=== PATIENT | female | born 1935 | race Caucasian/White ===

== ENCOUNTER 2022-09-01 19:51 | Emergency (ER) | payer MEDICARE, BC, SELFPAY ==
[2022-09-01] VITALS (7 sets, daily range): BP systolic 101–120; BP diastolic 46–98; PULSE 52–56; RESP 16; TEMP 36.1; O2SAT 92
--- NOTE | 2022-09-01 19:54 | CRLHL7_ITS ---
For Patients: As a result of the Century Cures Act, medical imaging exams and procedure reports are released immediately into your electronic medical record. You may view this report before your referring provider. If you have questions, please contact your health care provider. INDICATION: Fall, hematoma. TECHNIQUE: CT head without contrast. COMPARISON: March 07, 2017. FINDINGS: CSF spaces: Within normal limits for age. Brain parenchyma and extra-axial spaces: The allen-white differentiation is normal. No sign of mass, hemorrhage, or midline shift. No extra-axial fluid collection. Skull base and calvarium: Large frontal and parietal scalp hematoma. The visualized paranasal sinuses and mastoid air cells demonstrate no acute or significant findings. Bilateral lens replacement. The visualized orbits are grossly unremarkable. No skull fractures. IMPRESSION: Left frontal and parietal scalp hematomas. No acute intracranial abnormality or significant change when compared to prior study. Please note that all CT scans at this facility use dose modulation, iterative reconstruction, and/or weight-based dosing when appropriate to reduce radiation dose to as low as reasonably achievable. Dictated by Shayne Monge MD @ 09/01/2022 8:39:38 PM (Electronically Signed)
--- NOTE | 2022-09-01 20:23 | CRLHL7_ITS ---
For Patients: As a result of the Cures Act, medical imaging exams and procedure reports are released immediately into your electronic medical record. You may view this report before your referring provider. If you have questions, please contact your health care provider. INDICATION: Neck pain. TECHNIQUE: CT cervical spine without contrast. COMPARISON: 05/11/2021. FINDINGS: Vertebrae: Straightening of the normal cervical lordosis, which may be due to muscle spasm or positioning. There are no fractures or suspicious bony lesions. Discs and facet joints: There are diffuse degenerative changes in the disc spaces and facet joints. Extraspinal findings: Paraspinous soft tissues are unremarkable. IMPRESSION: 1. No sign of acute injury. 2. Multilevel degenerative spondylosis. Please note that all CT scans at this facility use dose modulation, iterative reconstruction, and/or weight-based dosing when appropriate to reduce radiation dose to as low as reasonably achievable. Dictated by Magno Lyons MD @ 09/01/2022 10:47:03 PM (Electronically Signed)
--- NOTE | 2022-09-01 20:29 | CRLHL7_ITS ---
For Patients: As a result of the Century Cures Act, medical imaging exams and procedure reports are released immediately into your electronic medical record. You may view this report before your referring provider. If you have questions, please contact your health care provider. INDICATION: Hypoxia. TECHNIQUE: CT chest without contrast. COMPARISON: None. FINDINGS: Lungs and pleura: Minimal dependent and mild bibasal atelectasis. No suspicious nodules or infiltrates. No pleural effusions, pleural thickening, or pneumothorax. Heart and vasculature: Heart size is normal. Thoracic aorta is normal in caliber. Enlarged main pulmonary artery measuring 3.5 cm. Aortic valve, mitral annular, coronary artery, and aortic calcifications. Lymph nodes/mediastinum: No mediastinal, hilar, or axillary adenopathy. Thyroid gland is unremarkable. Chest wall: No masses. Upper abdomen: Partially visualized postsurgical changes of the right colon. Bones: Degenerative changes of the spine and left shoulder. Right shoulder arthroplasty. IMPRESSION: 1. Minimal dependent and mild bibasilar atelectasis. Otherwise no acute airspace disease. 2. Enlarged main pulmonary artery, suggestive of underlying pulmonary hypertension. 3. Aortic valve, mitral annular, coronary artery, and aortic calcifications. Please note that all CT scans at this facility use dose modulation, iterative reconstruction, and/or weight-based dosing when appropriate to reduce radiation dose to as low as reasonably achievable. Dictated by Magno Lyons MD @ 09/01/2022 10:52:20 PM (Electronically Signed)
--- NOTE | 2022-09-01 20:31 | ED_ITS ---
HPI - Fall General Chief Complaint: Fall/Minor Trauma Stated Complaint: Fall, Head Laceration Time Seen by Provider: 09/01/22 20:07 History of Present Illness HPI Narrative: 87-year-old woman presenting to the emergency department via EMS after a fall in her kitchen. Lives independently with her in town home. She says she feels sorry for him as he has so much trouble remembering anything anymore. She normally gets about with a walker and was transitioning between 2 counters in her kitchen and a walker was about 2 ft away. She just fell down. Clearly struck the left forehead. She does have neck pain but notes that this is chronic that she has a pretty bad neck she says. A no loss of consciousness. She is not complaining of nausea. Would just like something to drink. As I begin moving her about though she also notes that she is sore around her waist bilaterally. Has had sounds like 3 falls in the last 2 weeks. On exam I note some injury to her back. She is not complaining of shortness of air. Low 90s on initial triage for oxygen saturation. Apparently does have sleep apnea but does not tend to use her BiPAP. History also of atrial fibrillation but is not anticoagulated beyond aspirin. She does also have home O2 up to 2 L as needed. Does chronically take opiates for looks like a number of pain issues. Related Data Home Medications Medication Instructions Recorded Confirmed Tylenol extra strength 500 mg PO 2XD 09/01/22 09/01/22 alendronate 70 mg tablet mg PO 09/01/22 allopurinol 300 mg tablet mg 09/01/22 calcium carbonate 500 mg calcium 500 mg PO BID 09/01/22 09/01/22 (1,250 mg) chewable tablet duloxetine 60 mg capsule,delayed mg PO 09/01/22 release ferrous sulfate 325 mg (65 mg 325 mg PO DAILY 09/01/22 09/01/22 iron) tablet (Feosol) hydromorphone 2 mg tablet mg 09/01/22 metoprolol tartrate 25 mg tablet mg 09/01/22 morphine 30 mg tablet,extended mg PO 09/01/22 release naloxone 4 mg/actuation nasal spray intranasal 09/01/22 omeprazole 20 mg capsule,delayed mg 09/01/22 release potassium chloride 10 mEq meq 09/01/22 capsule,extended release pregabalin 25 mg capsule mg 09/01/22 ropinirole 2 mg tablet mg 09/01/22 rosuvastatin 10 mg tablet mg 09/01/22 torsemide 20 mg tablet mg 09/01/22 Review of Systems Status of ROS: Reports: 6 or more systems reviewed and unremarkable except as noted in History and below [facility] Social History Non-prescribed substance use: denies use Exam Narrative: Exam Narrative: Pleasant. Hard of hearing. Quite alert. Other than hard of hearing and edentulous limiting communication is quite clear sensorium. Left eye often is a little closed though she clearly can open it. General ptosis believe this is chronic. Cranial nerves 2-12 otherwise look to be intact. Most notably she does have a half racquetball sized swelling at the left forehead over the taoist. It is oozing some blood. Blood generally in the area looks to be coagulating well. She has her neck flexed generally to her left. Sore to palpation in the left paracervical musculature not so much midline. Oropharynx is edentulous at this time with pegs in the lower jaw. Lungs are clear there is large patch of bruising would estimate around a week old on the left midback. Not terribly tender to palpation. No step-offs or crepitus noted here. Cardiovascular with lower rate looks to be regular. Abdomen is protuberant soft and without masses. Mildly tender generally across the low abdomen. No pain to palpation through the back until the bilateral upper gluteal area. There is 2.5 cm v-shaped laceration more like a skin tear in the volar mid left forearm. Both thumbs are stained with blood the looks like probably came from forehead. This some bruising over the posterior left upper arm. Both knees are full and with scars consistent with bilateral knee replacements. Left sock is on right sock is off hallux valgus bilaterally. Superficial varicosities. No indication of injury in the lower extremities. Const: Vital Signs, click to edit/add: Vital Signs - 24 hr 09/01/22 20:03 09/01/22 20:48 09/01/22 21:01 Temperature 97.0 F L Pulse Rate 56 L Pulse Rate [Right] 56 L Respiratory Rate 16 Blood Pressure 101/46 L Blood Pressure [Le ft Upper Arm] 120/62 Pulse Oximetry 92 92 Oxygen Delivery Me thod Room Air 09/01/22 21:04 09/01/22 21:15 09/01/22 21:30 Temperature Pulse Rate 52 L 52 L 52 L Pulse Rate [Right] Respiratory Rate Blood Pressure Blood Pressure [Le ft Upper Arm] Pulse Oximetry 92 92 92 Oxygen Delivery Me thod 09/01/22 21:33 Temperature Pulse Rate Pulse Rate [Right] Respiratory Rate Blood Pressure 115/98 H Blood Pressure [Le ft Upper Arm] Pulse Oximetry Oxygen Delivery Me thod Documenting provider has reviewed patient's vital signs: yes Course Vital Signs Vital signs: Initial Vital Signs Temperature 97.0 F L 09/01/22 20:03 Temperature Source Temporal Artery Scan 09/01/22 20:03 Pulse Rate 56 L 09/01/22 20:03 Pulse Rhythm 09/01/22 20:03 Respiratory Rate 16 09/01/22 20:03 Blood Pressure 120/62 09/01/22 20:03 Blood Pressure Mean 81 09/01/22 20:03 Blood Pressure Position Semi-Fowlers 09/01/22 20:03 Pulse Oximetry 92 09/01/22 20:03 Oxygen Delivery Method 09/01/22 20:03 Vital Signs Temperature 97.0 F L 09/01/22 20:03 Pulse Rate 56 L 09/01/22 20:03 Respiratory Rate 16 09/01/22 20:03 Blood Pressure 120/62 09/01/22 20:03 Pulse Oximetry 92 09/01/22 20:03 Oxygen Delivery Method 09/01/22 20:03 Temperature 97.0 F L 09/01/22 20:03 Pulse Rate 52 L 09/01/22 21:30 Respiratory Rate 16 09/01/22 20:03 Blood Pressure 115/98 H 09/01/22 21:33 Pulse Oximetry 92 09/01/22 21:30 Oxygen Delivery Method 09/01/22 20:03 MDM - Fall MDM Narrative Medical decision making narrative: I reviewed head CT which had already been ordered and completed by the time I am seeing this patient. Do not see acute abnormality other than extra calvarial with soft tissue swelling consistent with hematoma appreciated on exam at the left forehead. Visualized neck looks to be rather arthritic. Pending Radiology over-read. Will return for the neck CT and continue through chest given bruising and hypoxia. Reviewed images of CT of the neck and chest. No acute abnormalities appreciated. Radiology over-read concurs with extensive arthritic changes and evidence of pulmonary hypertension. Daughter arrived expressing concern regarding mother's mental status. I think this remained relatively stable but perceived then clearing of sensorium over time in the emergency department. Perhaps also improve somewhat with temporary placement of hearing aids. Bloody scalp cleaned and over the hematoma almost more skin tear lacerations given how thin the scalp has become here due to impact and with hematoma below. Does continue to ooze. Had tried temporary placement of a pressure dressing. Seems will have to suture. Lidocaine with epinephrine is injected into this area which she tolerates quite well. I then cleansed further with Shur-Clens. Suture to total area of 1 in and 3/4 with 6 0 Ethilon interrupted sutures. Still slightly oozing but improved I would say. Pressure dressing placed. Ambulated to and from the bathroom without notable difficulty. Medical Records Attestation: I reviewed the patient's medical records. Lab Data Attestation: I reviewed the patient's lab results. Labs: Lab Results 09/01/22 Range/Units 21:50 Urine Color Yellow (Yellow) Urine Appearance Cloudy A (Clear) Urine pH 6.0 (5.0-8.5) Ur Specific [place] 1.020 (1.000-1.030) Urine Protein Negative (Negative) Urine Glucose (UA) Negative (Negative) Urine Ketones Negative (Negative) Urine Blood Trace-intact A (Negative) Urine Nitrite Negative (Negative) Urine Bilirubin Negative (Negative) Urine Urobilinogen 0.2 (0.2-1.0) Ur Leukocyte Esterase 1+ A (Negative) Urine RBC 0-2 (0-2) Urine WBC 0-2 (0-5) Ur Squamous Epith Cells Few (None-Few) Urine Bacteria Moderate A (None) Discharge Plan Discharge Clinical Impression: Hematoma, Closed head injury, Skin tear, Abrasion, Laceration of scalp Patient Disposition: Home w/ Parent or Adult Condition: Improved Additional Instructions: Change dressing daily for 4 days over left scalp applying antibiotic ointment and nonstick dressing. Then to dry dressing. Sutures out in 8 days or so. Okay to get wet while sutures are in but avoid soaking. If bleed through current dressing, replace. If bleed through the replacement r eturn to the emergency department. Leave current dressing on until late afternoon tomorrow or even morning of the . It is possible might have to apply some water to soak bandage to help remove initial dressing change. Signs or symptoms of a concussion might be nausea or headache upon exertion which can also be an indication to back off that level of activity and reassess in a week.? Concussion can also be represented by smoldering nausea or smoldering headache, difficulty with concentration, mood lability general somnolence, sense of persistent fog or dizziness/lightheadedness.? If these symptoms are becoming apparent and continuing beyond 7-10 days, be re-evaluated for further recommendations. Prescriptions: No Action potassium chloride 10 mEq capsule, extended release Label Comments: TAKE 2 CAPSULES BY MOUTH ONCE DAILY WITH A MEAL. torsemide 20 mg tablet Label Comments: TAKE 2 TABLETS BY MOUTH TWICE A DAY alendronate 70 mg tablet PO morphine 30 mg tablet extended release PO Label Comments: TAKE 1 TABLET (30 MG) BY MOUTH TWO TIMES DAILY. hydromorphone 2 mg tablet Label Comments: TAKE 1-2 TABS TWICE DAILY NEEDED FOR PAIN. MAX 2 DAILY. ropinirole 2 mg tablet Label Comments: TAKE 1 TABLET (2 MG) BY MOUTH IN THE MORNING AND 1 TABLET (2 MG) IN THE EVENING. omeprazole 20 mg capsule,delayed release(DR/EC) Label Comments: TAKE 1 CAPSULE BY MOUTH IN THE MORNING AND 1 CAPSULE IN THE EVENING. TAKE BEFORE MEALS. allopurinol 300 mg tablet Label Comments: TAKE 1 TABLET BY MOUTH ONCE DAILY. rosuvastatin 10 mg tablet Label Comments: TAKE 1 TABLET BY MOUTH EVERYDAY AT BEDTIME metoprolol tartrate 25 mg tablet Label Comments: TAKE 1 TABLET BY MOUTH IN THE MORNING AND 1 TABLET IN THE EVENING. duloxetine 60 mg capsule,delayed release(DR/EC) PO Label Comments: TAKE 1 CAPSULE BY MOUTH ONCE DAILY. pregabalin 25 mg capsule Label Comments: TAKE 1 CAPSULE (25 MG) BY MOUTH TWO TIMES DAILY. naloxone 4 mg/actuation spray,non-aerosol INTRANASAL Label Comments: INHALE 1 SPRAY INTO NOSTRIL NEEDED FOR ACCIDENTAL OVERDOSE. ADDITIONAL DOSES MAY BE GIVEN EVERY 2-3 MINUTES ALTERNATING NOTRILS. Tylenol extra strength 500 mg PO 2XD ferrous sulfate [Feosol] 325 mg (65 mg iron) tablet 325 mg PO DAILY calcium carbonate 500 mg calcium (1,250 mg) tablet,chewable 500 mg PO BID Follow Up/Referrals: Bucky Nicholas MD [Primary Care Provider] - Stand Alone Forms: [facility] Info Instructions
[2022-09-01 21:58] LABS: Appearance Urine Cloudy (Clear); Bilirubin Urine Negative (Negative); Blood Urine Trace-intact (Negative); Color Urine Yellow (Yellow); Glucose Urine Negative (Negative); Ketones Urine Negative (Negative); Leukocyte Esterase Urine 1+ (Negative); Nitrite Urine Negative (Negative); Protein Urine Negative (Negative); Urobilinogen Urine 0.2 (0.2-1.0)
[2022-09-01 22:06] LABS: Bacteria Urine Moderate; RBC Urine 0-2 (0-2); Squamous Epithelial Cell Urine Few (None-Few); WBC Urine 0-2 (0-5)
--- NOTE | 2022-09-01 22:50 | ED.NURSE ---
wound cleaned and wrapped with gauze.
--- NOTE | 2022-09-01 23:40 | ED.NURSE ---
pt able to ambulate with assistance, pt uses a walker at home. pt not dizzy during ambulation.
--- NOTE | 2022-09-03 11:25 | ED.NURSE ---
called the patient at home and informed of wanting to treat the patient with Amoxicillin 500mg orally BID x 7 days. called the script into [facility] pharmacy [facility] in [place].
== END 2022-09-01 23:39 | disposition home or self-care (01) ==
PROVIDERS: Emergency Provider Family Medicine; PCP Family Medicine
DX: S01.01XA Laceration without foreign body of scalp, initial encounter (principal); S51.812A Laceration without foreign body of left forearm, initial encounter; S30.0XXA Contusion of lower back and pelvis, initial encounter; S09.90XA Unspecified injury of head, initial encounter; W18.30XA Fall on same level, unspecified, initial encounter; Y93.9 Activity, unspecified; Y92.030 Kitchen in apartment as the place of occurrence of the external cause
CPT/HCPCS: 12001; 70450; 71250; 72125; 81001; 87086; 87186; 99284

== ENCOUNTER 2022-10-15 15:35 | Inpatient (IN) | payer MEDICARE, BC, SELFPAY ==
[2022-10-15 15:54] VITALS: BP 133/59; PULSE 77; RESP 18; TEMP 36.7; O2SAT 91; O2SAT 96; BMI 24.8
--- NOTE | 2022-10-15 16:25 | P.IMHP_ITS ---
Hospitalist- H&P: HPI History of Present Illness Date Seen: 10/15/22 Chief complaint: Direct admission, cellulitis Narrative: Jacqueline Greene is a 87 year old female who presented to the hospital for a direct admission, after failing outpatient antibiotics for right lower extremity cellulitis. Jacqueline was noted to have cellulitis of her LEFT leg last fall; was on antibiotics for approximately 4 weeks to fully clear this up. Approximately 1 week ago, she started having erythema and worsening pain of her RIGHT lower extremity. She was seen in clinic on 10/11, culture collected, and she was treated with IM Rocephin and oral clindamycin. Today, she re-presented to the clinic and saw her PCP, Dr. Nicholas, who noted that her cellulitis had significantly worsened and was not accompanied by more edema and draining vesicular lesions. Clinic findings: - Culture was reviewed; exhibiting Staph aureus resistant to clindamycin - right lower extremity ultrasound obtained in the clinic, negative for DVT - afebrile; WBC 6.2, Hgb 10.8, platelets 212 Given failure of outpatient antibiotics and immunocompromised status (PVD, DM2, recurrent cellulitis), patient admitted to the hospital for IV antibiotic management. When I see Jacqueline, her only complaint is lower extremity pain. She notes a history of chronic pain and is on daily narcotics. Past medical history updated below; PCP is Dr. Nicholas locally. Review of Systems Status of ROS: Reports: 10 or more systems reviewed and unremarkable except as noted in History and below Narrative: - admits to recurrent falls at home; recently fell and suffered a head wound - no fevers - no CP - no dyspnea - has oxygen at home for prn use, not using regularly (on chart review, it appears this is for ORIANA, although patient is unsure of diagnosis for supplemental oxygen) [facility] Medical History (Updated 10/15/22 @ 19:47 by Odette Castillo MD) Atrial fibrillation Chronic pain CKD (chronic kidney disease) Essential (primary) hypertension GERD (gastroesophageal reflux disease) Hyperlipidemia Non-insulin dependent diabetes mellitus ORIANA (obstructive sleep apnea) Spinal stenosis Surgical History (Updated 10/15/22 @ 16:38 by Odette Castillo MD) H/O umbilical hernia repair History of hip replacement Hx of right hemicolectomy S/P knee replacement Social History (Updated 10/15/22 @ 19:38 by Odette Castillo MD) Narrative: Lives with in [place], 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 Former smoker, quit remotely. Rare alcohol use. Daily narcotic use secondary to chronic pain. Son Douglas would be medical decision maker if needed. Requests full code status, does not desire long-term intubation. Highest level of school completed/degree received: some college, no degree Smoking Status: Former smoker Do you use any of these nicotine containing products: None How often do you have a drink containing alcohol: monthly or less AUDIT-C Alcohol total score: 1 Non-prescribed substance use: denies use Caffeine: Yes service: No Meds Home Medications and Allergies Home Medications Medication Instructions Recorded Confirmed Type acetaminophen 1,000 mg PO BID 09/01/22 10/15/22 History alendronate 70 mg tablet 70 mg PO QWEEK 09/01/22 10/15/22 History allopurinol 300 mg tablet 300 mg PO DAILY 09/01/22 10/15/22 History calcium carbonate 500 mg calcium 500 mg PO BID 09/01/22 10/15/22 History (1,250 mg) chewable tablet duloxetine 60 mg capsule,delayed 60 mg PO DAILY 09/01/22 10/15/22 History release ferrous sulfate 325 mg (65 mg 325 mg PO DAILY 09/01/22 10/15/22 History iron) tablet (Feosol) hydromorphone 2 mg tablet 2 mg PO BID pain 09/01/22 10/15/22 History metoprolol tartrate 25 mg tablet 25 mg PO BID 09/01/22 10/15/22 History morphine 30 mg tablet,extended 30 mg PO BID chronic pain 09/01/22 10/15/22 History release naloxone 4 mg/actuation nasal spray 4 mg intranasal Q3M PRN opioid 09/01/22 10/15/22 History overdose omeprazole 20 mg capsule,delayed 20 mg PO BID 09/01/22 10/15/22 History release potassium chloride 10 mEq 20 meq PO DAILY 09/01/22 10/15/22 History capsule,extended release pregabalin 25 mg capsule 25 mg PO BID 09/01/22 10/15/22 History ropinirole 2 mg tablet 2 mg PO BID 09/01/22 10/15/22 History rosuvastatin 10 mg tablet 10 mg PO HS 09/01/22 10/15/22 History torsemide 20 mg tablet 40 mg PO BID 09/01/22 10/15/22 History aspirin 81 mg chewable tablet 81 mg PO DAILY 10/15/22 10/15/22 History clindamycin HCl 300 mg capsule 300 mg PO TID 10/15/22 10/15/22 History Allergies Allergy/AdvReac Type Severity Reaction Status Date / Time atorvastatin Allergy Unknown Verified 09/03/22 11:20 fentanyl Allergy Unknown Verified 09/03/22 11:20 gabapentin Allergy Unknown Verified 09/03/22 11:20 metoclopramide [From Reglan] Allergy Unknown Verified 09/03/22 11:20 Exam Narrative: Exam Narrative: GEN: Alert and oriented, hard of hearing but answering questions appropriately. Kyphotic and sitting in bedside chair HEENT: EOMIs bilaterally, no scleral icterus CV: RRR, No concerning murmurs, rubs, or gallops R: LCTA bilaterally without concerning wheezing, air movement adequate Ext: There is 3+ edema of the right lower extremity with warmth, erythema, and multiple vesicular lesions. This area is tender to palpation. No edema or erythema to left lower extremity. Multiple callused lesions bilateral feet, none are open or draining. Lateral deviation of all toes bilaterally, + hallux valgus bilaterally Skin: Erythema with vesicular lesions RLE Neuro: No focal deficits or resting tremor Psych: Appropriate Const: Vital Signs, click to edit/add: Vital Signs - 24 hr 10/15/22 15:54 Temperature 98.0 F Pulse Rate [Right Pulse Oximeter] 77 Respiratory Rate 18 Blood Pressure [Le ft Arm] 133/59 L Pulse Oximetry 91 Oxygen Delivery Me thod Room Air Assessment and Plan Assessment and plan (1) Cellulitis: Problem comment: - complicated by immunocompromised status (PVD, DM2) - culture obtained at [facility] on 10/11 ([facility]); reviewed sensitivity with pharmacy. Will treat with IV Ancef based on results - repeat culture obtained on admission - continue home dose of torsemide for edema Status: Acute (2) CKD (chronic kidney disease): Problem comment: - GFR 63 10/15 Status: Acute (3) Non-insulin dependent diabetes mellitus: Problem comment: - last A1c as an outpatient 6.0 (08/2023) Status: Acute (4) Essential (primary) hypertension: Problem comment: - continue home metoprolol Status: Acute (5) Frequent falls: Problem comment: - likely multifactorial (cellulitis, PVD, iatrogenic) - PT and OT evaluations ordered Status: Acute (6) ORIANA (obstructive sleep apnea): Problem comment: - not on CPAP - continue prn supplemental oxygen overnight Status: Acute (7) Macrocytic anemia: Problem comment: - Hgb 10.8 on 10/15, has drifted down from 13.1 in mid-2021 - no evidence of acute bleeding, routine outpatient f/u Status: Acute Plan - Ancef as noted above - Wound care referral - Lovenox for ppx - continue home medications for pain management
[2022-10-15 16:33] LABS: PCR FLU A Negative PCR FLU A (Negative); PCR FLU B Negative PCR FLU B (Negative); PCR RSV Negative PCR RSV (Negative)
[2022-10-15 16:34] LABS: SARS PCR* Negative SARS-CoV-2 (Negative)
[2022-10-15] MEDS: OMEPRAZOLE 20 MG CAPSULE DR PO (17:42)
[2022-10-15] MEDS: CEFAZOLIN 1 GM in 0.9 % SODIUM CHLORIDE Mini-bag 100 ML IVPB (17:42)
[2022-10-15 19:30] VITALS: BP 93/52; PULSE 74; RESP 18; TEMP 36.4; O2SAT 95
[2022-10-15] MEDS: HYDROmorphone 2 MG TABLET PO (19:35)
--- NOTE | 2022-10-15 19:55 | PC.NURSE ---
Nursing Care Hours: [id number] Pt this shift c/o 10/10 pain in R leg, stating it feels sharp and shooting. Attempted to use heat and elevation without effectiveness. PRN morphine given PO, pt states no effectiveness. Up with SB assist using walker for ambulation. Voiding in toilet. Eating regular meal. Alert and oriented. Pleasant. IV ABX given.
[2022-10-15] MEDS: ACETAMINOPHEN 500 MG TABLET 1000 MG PO (20:37)
[2022-10-15] MEDS: SODIUM CHLORIDE 0.9 % (FLUSH) 10 ML SYRINGE 5 ML IVF (20:38)
[2022-10-15] MEDS: ROPINIROLE HCL 1 MG TABLET 2 MG PO (20:38)
[2022-10-15] MEDS: PREGABALIN 25 MG CAPSULE PO (20:38)
[2022-10-15] MEDS: MORPHINE 30 MG TABLET.ER PO (20:38)
[2022-10-15] MEDS: CALCIUM CARBONATE 500 MG CHEW PO (20:38)
[2022-10-15] MEDS: METOPROLOL TARTRATE 25 MG TABLET PO (20:38)
[2022-10-15] MEDS: ROSUVASTATIN CALCIUM 10 MG TABLET PO (20:38)
[2022-10-15 23:00] VITALS: BP 124/63; PULSE 57; RESP 14; TEMP 36.7; O2SAT 91
[2022-10-16] VITALS (8 sets, daily range): BP systolic 102–142; BP diastolic 59–73; PULSE 55–68; RESP 16–20; TEMP 36.7–36.9; O2SAT 91–96
[2022-10-16] MEDS: CEFAZOLIN 1 GM in 0.9 % SODIUM CHLORIDE Mini-bag 100 ML IVPB ×3 (00:46→19:48)
[2022-10-16] MEDS: SODIUM CHLORIDE 0.9 % (FLUSH) 10 ML SYRINGE 5 ML IVF ×3 (00:47→21:19)
--- NOTE | 2022-10-16 05:19 | PC.NURSE ---
END OF SHIFT NOTE: PT PLEASANT AND COOPERATIVE WITH CARES. DENIES CP, SOB, N/V. AMBULATES WITH WALKER, SBA. VSS ON 0.5-1.5L SUPPLEMENTAL O2 VIA NC TO MAINTAIN SPO2 >90%; AFEBRILE. RLE WITH CELLULITIS THAT IS NEETA AND WEEPING. MARGINS MARKED FROM PREVIOUS SHIFT; REDNESS HAS RECEDED.?DISPOSABLE BLUE CHUX CHANGED PRN. RLE ELEVATED. BED ALARM ON AND CALL LIGHT WITHIN REACH OF PT.
[2022-10-16] MEDS: OMEPRAZOLE 20 MG CAPSULE DR PO ×2 (06:05→18:08)
[2022-10-16 06:56] LABS: Basophils Absolute Auto 0.02 K/uL (0.00-0.30); Basophils Percent Auto 0.4 % (0.0-3.0); Eosinophils Percent Auto 9.5 % (0.0-7.0); Hematocrit 37.2 % (33.0-51.0); Lymphocytes Absolute Auto 1.04 K/uL (0.90-2.90); Lymphocytes Percent Auto 20.2 % (20-44); Mean Corpuscular HGB Conc 32 gm/dL (32-36); Mean Corpuscular Hemoglobin 34 pg (26-34); Mean Corpuscular Volume 104 fL (80-100); Monocytes Percent Auto 7.4 % (0.0-11.0); Neutrophils Absolute Auto 3.22 K/uL (1.7-7.0); Neutrophils Percent Auto 62.5 % (42.0-72.0); Platelet Count* 227 K/uL (140-440); Red Blood Count 3.57 m/uL (4.00-5.20); White Blood Count* 5.15 K/uL (4.50-11.00)
[2022-10-16 07:03] LABS: Slide Review Reflex No
[2022-10-16 07:18] LABS: Chloride* 101 mmol/L (96-114); Potassium* 3.9 mmol/L (3.6-5.1); Sodium* 137 mmol/L (135-149)
[2022-10-16 07:21] LABS: Blood Urea Nitrogen* 12 mg/dL (7-30); Carbon Dioxide* 33 mmol/L (20-32); Creatinine* 0.6 mg/dL (0.5-1.5); Est. Creatinine Clearance* 36.11; Estimated Glomerular Filt Rate 88 ml/min
[2022-10-16 07:22] LABS: Calcium* 8.3 mg/dL (8.4-10.6); Glucose* 96 mg/dL (60-115)
[2022-10-16] MEDS: ASPIRIN 81 MG TAB.CHEW PO (09:15)
[2022-10-16] MEDS: FERROUS SULFATE 325 MG TABLET PO (09:15)
[2022-10-16] MEDS: CALCIUM CARBONATE 500 MG CHEW PO ×2 (09:16→21:19)
[2022-10-16] MEDS: MORPHINE 30 MG TABLET.ER PO ×2 (09:16→21:19)
[2022-10-16] MEDS: ROPINIROLE HCL 1 MG TABLET 2 MG PO ×2 (09:16→21:18)
[2022-10-16] MEDS: POTASSIUM CHLORIDE 10 MEQ CAPSULE ER 20 MEQ PO (09:17)
[2022-10-16] MEDS: ACETAMINOPHEN 500 MG TABLET 1000 MG PO ×2 (09:21→21:19)
[2022-10-16] MEDS: HYDROmorphone 2 MG TABLET PO ×2 (09:23→19:48)
[2022-10-16] MEDS: TORSEMIDE 20 MG TABLET 40 MG PO ×2 (09:23→13:50)
[2022-10-16] MEDS: allopurinoL 300 MG TABLET PO (09:24)
[2022-10-16] MEDS: DULOXETINE 30 MG CAPSULE DR 60 MG PO (09:24)
[2022-10-16] MEDS: METOPROLOL TARTRATE 25 MG TABLET PO ×2 (10:40→21:19)
[2022-10-16] MEDS: PREGABALIN 25 MG CAPSULE PO ×2 (10:40→21:19)
--- NOTE | 2022-10-16 13:41 | PM.IMPN1 ---
Progress Note: A&P Assessment and plan (1) Cellulitis: Problem details: - complicated by immunocompromised status (PVD, DM2) - culture obtained at [facility] clinic on 10/11 (MSSA); reviewed sensitivity with pharmacy. Will treat with IV Ancef based on results - repeat culture obtained on admission - continue home dose of torsemide for edema - negative DVT on u/s in clinic on 10/15 - Tubigrip size F, single-layer, apply to right lower extremity from tip of toes to just below the knee. Did apply Adaptic dressing over dry areas of open bullae and covered with Kerlix dressing before applying the Tubigrip. Status: Acute (2) CKD (chronic kidney disease): Problem details: - GFR 63 10/15 Status: Acute (3) Non-insulin dependent diabetes mellitus: Problem details: - last A1c as an outpatient 6.0 (08/2023) Status: Acute (4) Essential (primary) hypertension: Problem details: - continue home metoprolol Status: Acute (5) Frequent falls: Problem details: - likely multifactorial (cellulitis, PVD, iatrogenic) - PT and OT evaluations initiated Status: Acute (6) ORIANA (obstructive sleep apnea): Problem details: - not on CPAP - continue prn supplemental oxygen overnight Status: Acute (7) Macrocytic anemia: Problem details: - Hgb 10.8 on 10/15, has drifted down from 13.1 in mid-2021 - no evidence of acute bleeding, routine outpatient f/u Status: Acute (8) Chronic venous insufficiency of lower extremity: Problem details: Signs: telangiectasias, reticular veins, small and large vericose veins, edema, hemosideran deposition hyperpigmentation. Status: Acute Assessment and Plan: Initiated Tubigrip to right lower extremity only at this time. Consider bilateral lower extremity compression support in outpatient setting. (9) Chronic hypoxemic respiratory failure: Problem details: Utilizes oxygen supplementation at home only periodically when she thinks she might need it. Status: Acute Assessment and Plan: Work with our respiratory therapy to establish oxygen prescription for her at this time. Plan 1. Patient agreeable with above stated plans and recommendations. Time Spent With Patient Total time spent: 40 minutes Subjective Time Seen by Provider: 09:30 Date Seen: 10/16/22 Interval history: Hospital day 2. Jacqueline Greene is a 87 year old female who presented to the hospital for a direct admission, after failing outpatient antibiotics for right lower extremity cellulitis. Jacqueline was noted to have cellulitis of her LEFT leg last fall; was on antibiotics for approximately 4 weeks to fully clear this up. Approximately 1 week ago, she started having erythema and worsening pain of her RIGHT lower extremity.? She was seen in clinic on 10/11, culture collected, and she was treated with IM Rocephin and oral clindamycin. Today, she re-presented to the clinic and saw her PCP, Dr. Nicholas, who noted that her cellulitis had significantly worsened and was not accompanied by more edema and draining vesicular lesions. Clinic findings: ?- Culture was reviewed; exhibiting Staph aureus resistant to clindamycin ?- right lower extremity ultrasound obtained in the clinic, negative for DVT ?- afebrile; WBC 6.2, Hgb 10.8, platelets 212 Given failure of outpatient antibiotics and immunocompromised status (PVD, DM2, recurrent cellulitis), patient admitted to the hospital for IV antibiotic management. When admitted to hospital, her only complaint is lower extremity pain.? She notes a history of chronic pain and is on daily narcotics. Generally speaking her pain is improved from yesterday. Still has intermittent sharp shooting pains particularly in right calf. Seems to correlate with the significant decrease in right lower extremity edema. Additionally there is less erythema. The bollae that were noted yesterday are for the most part resolved. No more open wounds from open bollous vesicles. Has had no fevers or rigors. Now tolerating ambulating the hallway with standby assist and use of her walker. Noted to have chronic hypoxemic respiratory failure here in the hospital. She tells us that she does use oxygen at home intermittently although as prescribed at all times. Exam Narrative: Exam Narrative: Appears comfortable no acute distress when I see her. Transfers from supine to sitting and sitting to standing with standby assist and use of walker. Ambulates in halls with walker, gait belt, standby assist. Ambulatory oxygen saturation at rest drops as low as low to mid 80s. With oxygen supplementation at 2 liters/minute venous cannula continuously and walking her oxygen saturations run in lower to mid 90s. Edema, erythema, hyperpigmentation, telangiectasias, reticular veins, small and large varicose veins are noted in bilateral lower extremities. Does have some dried open bollae on the right lower extremity, reportedly much improved from yesterday. No purulent drainage. Serous crusting only noted. Right calf circumference at largest area measures 36 cm. Profound kyphosis, chronic. Lungs with fine end inspiratory rales bilaterally. No wheezing or rhonchi. Heart tones with regular rhythm. Abdomen is thin with active bowel sounds, soft, nontender. No focal motor neurologic deficits. Const: Vital Signs, click to edit/add: Vital Signs - 24 hr 10/15/22 15:54 10/15/22 15:54 10/15/22 19:30 Temperature 98.0 F 97.6 F Pulse Rate [Right Pulse Oximeter] 77 74 Respiratory Rate 18 18 Blood Pressure [Le ft Arm] 133/59 L 93/52 L Pulse Oximetry 91 96 95 Oxygen Delivery Me thod Room Air Room Air Room Air Oxygen Flow Rate 10/15/22 23:00 10/15/22 23:00 10/15/22 23:00 Temperature 98.1 F Pulse Rate [Right Pulse Oximeter] 57 L 57 L Respiratory Rate 14 14 14 Blood Pressure [Le ft Arm] 124/63 Pulse Oximetry 91 91 Oxygen Delivery Me thod Nasal Cannula Nasal Cannula Oxygen Flow Rate 0.5 0.5 10/16/22 03:00 10/16/22 07:00 10/16/22 10:00 Temperature 98.0 F Pulse Rate [Right Pulse Oximeter] 63 57 L 68 Respiratory Rate 16 16 Blood Pressure [Le ft Arm] 133/68 116/59 L Pulse Oximetry 91 93 Oxygen Delivery Me thod Nasal Cannula Nasal Cannula Oxygen Flow Rate 1.0 1 10/16/22 07:00 10/16/22 07:00 Temperature Pulse Rate [Right Pulse Oximeter] 68 Respiratory Rate 16 16 Blood Pressure [Le ft Arm] Pulse Oximetry 93 Oxygen Delivery Me thod Nasal Cannula Oxygen Flow Rate 1 Documenting provider has reviewed patient's vital signs: yes Labs Labs: Laboratory Results - last 24 hr 10/15/22 10/16/22 10/16/22 15:37 06:30 06:30 WBC 5.15 RBC 3.57 L Hgb 12.0 Hct 37.2 MCV 104 H MCH 34 MCHC 32 RDW Coeff of Josh 14.0 Plt Count 227 Neut % (Auto) 62.5 Lymph % (Auto) 20.2 Metcal[place] % (Auto) 7.4 Eos % (Auto) 9.5 H Baso % (Auto) 0.4 Neut # (Auto) 3.22 Lymph # (Auto) 1.04 [place] # (Auto) 0.40 Eos # (Auto) 0.50 Baso # (Auto) 0.02 Sodium 137 Potassium 3.9 Chloride 101 Carbon Dioxide 33 H BUN 12 Creatinine 0.6 Estimated Creat Clear 36.11 Estimated GFR 88 Glucose 96 Calcium 8.3 L C-Reactive Protein 5.0 H SARS-CoV-2 (PCR) Negative SARS-CoV-2 Influenza Type A (PCR) Negative PCR FLU A Influenza Type B (PCR) Negative PCR FLU B RSV (PCR) Negative PCR RSV
--- NOTE | 2022-10-16 18:39 | PC.NURSE ---
Pt alert and oriented x3. Pt reports 6/10 pain in RLE, pain managed with PRN medications. Right leg cellulitis has not passed outline, redness is receding. Dressing on RLE was placed 10/16/[address] Manriquez around 1130 due to weeping overnight. Dressing is CDI. Pt is up SBA with gait belt and walker. Pt is tolerating regular diet. IV that was put in 10/15/22 in left forearm was taken out with catheter intact due to IV site being tender, red, and swollen. New IV was placed in left forearm 10/16/22 around 1220.
[2022-10-16] MEDS: ROSUVASTATIN CALCIUM 10 MG TABLET PO (21:19)
[2022-10-17 02:50] VITALS: BP 140/91; PULSE 61; RESP 18; TEMP 36.8; O2SAT 95
[2022-10-17] MEDS: 0.9 % SODIUM CHLORIDE 250 ml IV (03:30)
[2022-10-17] MEDS: CEFAZOLIN 1 GM in 0.9 % SODIUM CHLORIDE Mini-bag 100 ML IVPB ×2 (03:30→11:36)
--- NOTE | 2022-10-17 05:59 | PC.NURSE ---
[id number]: Patient pleasant and cooperative. A&Ox3. [place], somewhat utilizing pocket talker. A1/4ww/GB. Afebrile. Pain controlled with scheduled narcotics. Reddened area receding within previously drawn lines. Dressing to RLE C/D/I.
[2022-10-17] MEDS: OMEPRAZOLE 20 MG CAPSULE DR PO (06:40)
[2022-10-17 07:00] VITALS: BP 129/63; PULSE 61; RESP 18; O2SAT 95
[2022-10-17] MEDS: DULOXETINE 30 MG CAPSULE DR 60 MG PO (08:09)
[2022-10-17] MEDS: TORSEMIDE 20 MG TABLET 40 MG PO (08:11)
[2022-10-17] MEDS: ROPINIROLE HCL 1 MG TABLET 2 MG PO (08:12)
[2022-10-17] MEDS: FERROUS SULFATE 325 MG TABLET PO (08:13)
[2022-10-17] MEDS: POTASSIUM CHLORIDE 10 MEQ CAPSULE ER 20 MEQ PO (08:14)
[2022-10-17] MEDS: CALCIUM CARBONATE 500 MG CHEW PO (08:15)
[2022-10-17] MEDS: MORPHINE 30 MG TABLET.ER PO (08:15)
[2022-10-17] MEDS: HYDROmorphone 2 MG TABLET PO (08:16)
[2022-10-17] MEDS: allopurinoL 300 MG TABLET PO (08:17)
[2022-10-17] MEDS: ACETAMINOPHEN 500 MG TABLET 1000 MG PO (08:19)
[2022-10-17] MEDS: ASPIRIN 81 MG TAB.CHEW PO (08:19)
[2022-10-17] MEDS: METOPROLOL TARTRATE 25 MG TABLET PO (08:20)
[2022-10-17] MEDS: PREGABALIN 25 MG CAPSULE PO (08:22)
--- NOTE | 2022-10-17 08:55 | PM.WSCN ---
Date of Consult Consult date: 10/17/22 Requesting Physician: Hospitalist Primary Care Provider: Bucky Nicholas MD Consult Narrative Reason for consult: RLE wounds Narrative: Jacqueline Greene is a 87 year old pleasant frail female being seen by wound services for RLE wounds. Patient admitted to hospital on 09/14/2022, direct admission from a line a clinic after failing outpatient oral antibiotics for cellulitis to right lower extremity. Fall 2021 patient had episode of cellulitis to left lower extremity which was successfully treated for 4 weeks with antibiotics. Approximately 1.5 weeks ago she was noted to have erythema and increased pain to her right lower extremity. She was seen in clinic [place] on 10/11, wound culture was completed and patient was treated with IM Rocephin and oral clindamycin. F/u with her PCP on 09/14/22 noted that her cellulitis had significantly worsened, increased edema and lateral and medial fascicular draining lesions. She was excepted for direct admission to the hospital. Wound culture results grew Staph aureus showing resistance to clindamycin. Right lower extremity ultrasound completed during clinic course negative for DVT. Patient wondering why she always has pain in her legs, wondering if it will ever go away. States she has compression garments that she does wear to her lower extremities, had been wearing them consistently but does admit that in the past month she not consistently worn her compression. She is on sure of the mmHg of the compression garments. Other pertinent past medical history that relevant to wound healing is patient is type 2 diabetic, not treated with insulin. Most recent A1c August 2022 returned at 6%. Macrocytic anemia. Known PVD. Chronic pain on daily narcotics. Patient reports recurrent falls at home. Recent fall suffered head injury there is scant residual/resolving/healing ecchymosis to facial tissue noted during physical examination today. Hospital course has included treatment of cellulitis with IV Ancef, continued on torsemide for edema, wound culture repeated on admission open bullae treated with Adaptic dressing secured with Kerlix and Tubigrip size F single layer. ? Review of Systems Status of ROS: Reports: 6 or more systems reviewed and unremarkable except as noted in History and below [facility] Medical History (Updated 10/16/22 @ 15:13 by Cristi Manriquez MD) Atrial fibrillation Chronic hypoxemic respiratory failure Chronic pain Chronic venous insufficiency of lower extremity CKD (chronic kidney disease) Essential (primary) hypertension GERD (gastroesophageal reflux disease) Hyperlipidemia Non-insulin dependent diabetes mellitus ORIANA (obstructive sleep apnea) Spinal stenosis Surgical History (Updated 10/15/22 @ 16:38 by Odette Castillo MD) H/O umbilical hernia repair History of hip replacement Hx of right hemicolectomy S/P knee replacement Social History (Updated 10/15/22 @ 19:38 by Odette Castillo MD) Narrative: Lives with in [place], 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 Former smoker, quit remotely. Rare alcohol use. Daily narcotic use secondary to chronic pain. Son Douglas would be medical decision maker if needed. Requests full code status, does not desire long-term intubation. Highest level of school completed/degree received: some college, no degree Smoking Status: Former smoker Do you use any of these nicotine containing products: None How often do you have a drink containing alcohol: monthly or less AUDIT-C Alcohol total score: 1 Non-prescribed substance use: denies use Caffeine: Yes service: No Meds Home Medications and Allergies Home Medications Medication Instructions Recorded Confirmed Type acetaminophen 1,000 mg PO BID 09/01/22 10/15/22 History alendronate 70 mg tablet 70 mg PO QWEEK 09/01/22 10/15/22 History allopurinol 300 mg tablet 300 mg PO DAILY 09/01/22 10/15/22 History calcium carbonate 500 mg calcium 500 mg PO BID 09/01/22 10/15/22 History (1,250 mg) chewable tablet duloxetine 60 mg capsule,delayed 60 mg PO DAILY 09/01/22 10/15/22 History release ferrous sulfate 325 mg (65 mg 325 mg PO DAILY 09/01/22 10/15/22 History iron) tablet (Feosol) hydromorphone 2 mg tablet 2 mg PO BID pain 09/01/22 10/15/22 History metoprolol tartrate 25 mg tablet 25 mg PO BID 09/01/22 10/15/22 History morphine 30 mg tablet,extended 30 mg PO BID chronic pain 09/01/22 10/15/22 History release naloxone 4 mg/actuation nasal spray 4 mg intranasal Q3M PRN opioid 09/01/22 10/15/22 History overdose omeprazole 20 mg capsule,delayed 20 mg PO BID 09/01/22 10/15/22 History release potassium chloride 10 mEq 20 meq PO DAILY 09/01/22 10/15/22 History capsule,extended release pregabalin 25 mg capsule 25 mg PO BID 09/01/22 10/15/22 History ropinirole 2 mg tablet 2 mg PO BID 09/01/22 10/15/22 History rosuvastatin 10 mg tablet 10 mg PO HS 09/01/22 10/15/22 History torsemide 20 mg tablet 40 mg PO BID 09/01/22 10/15/22 History aspirin 81 mg chewable tablet 81 mg PO DAILY 10/15/22 10/15/22 History clindamycin HCl 300 mg capsule 300 mg PO TID 10/15/22 10/15/22 History Allergies Allergy/AdvReac Type Severity Reaction Status Date / Time atorvastatin Allergy Unknown Verified 09/03/22 11:20 fentanyl Allergy Unknown Verified 09/03/22 11:20 gabapentin Allergy Unknown Verified 09/03/22 11:20 metoclopramide [From Reglan] Allergy Unknown Verified 09/03/22 11:20 Exam Narrative: Exam Narrative: General: NAD. Alert, sitting comfortably in recliner with lower extremities elevated. Cardiac: pedal pulses palpable, but diminished bilaterally. Pedal cap refill less than 6 seconds. Feet warm. Pulmonary: Speaking in full sentences, unlabored, symmetrical rise. MSK: Kyphosis, chronic in appearance. BLE: 2+ pitting edema, Right greater than left. Trace diffuse erythema, receding/resolving distally from skin marking. Hyper pigmentation, telangiectasias, reticular veins, and varying size varicose veins present. Skin dry and shiny, with hairloss. RLE: Medial wound, superior to malleolus measuring 1.5cmX0.5cmX0.1cm, 100% closed, no drainage. Lateral wound, superior to malleolus, measuring 0.5 cmX0.5cmX0.1cm 100% closed, no drainage. Amy-wounds WNL. Feet: bilateral plantar callus formation to 1st MTPs, loss of arches, hallux valgus, thickened toe nails, sensation decreased but present. Neuro: Grossly intact. Psych: normal affect. Interactive. Const: Vital Signs, click to edit/add: Vital Signs - 24 hr 10/16/22 10:00 10/16/22 13:00 10/16/22 15:00 Temperature 98.1 F Pulse Rate [Right Pulse Oximeter] 68 55 L 55 L Respiratory Rate 16 Blood Pressure [Le ft Arm] 102/59 L Pulse Oximetry 92 Oxygen Delivery Me thod Nasal Cannula Oxygen Flow Rate 1 10/16/22 15:00 10/16/22 15:00 10/16/22 19:46 Temperature 98.0 F 98.5 F Pulse Rate [Right Pulse Oximeter] 55 L 59 L Respiratory Rate 16 16 20 Blood Pressure [Le ft Arm] 108/73 107/59 L Pulse Oximetry 95 95 94 Oxygen Delivery Me thod Nasal Cannula Nasal Cannula Nasal Cannula Oxygen Flow Rate 1 1 1.0 10/16/22 22:16 10/16/22 23:00 10/17/22 02:50 Temperature 98.4 F 98.2 F Pulse Rate [Right Pulse Oximeter] 60 61 Respiratory Rate 18 18 18 Blood Pressure [Le ft Arm] 142/64 H 140/91 H Pulse Oximetry 96 96 95 Oxygen Delivery Me thod Nasal Cannula Nasal Cannula Nasal Cannula Oxygen Flow Rate 1.0 1.0 1.0 10/17/22 07:00 10/17/22 07:00 10/17/22 07:00 Temperature Pulse Rate [Right Pulse Oximeter] 61 61 Respiratory Rate 18 18 Blood Pressure [Le ft Arm] 129/63 Pulse Oximetry 95 95 Oxygen Delivery Me thod Nasal Cannula Nasal Cannula Oxygen Flow Rate 1 1 Documenting provider has reviewed patient's vital signs: yes Assessment and Plan Assessment and plan (1) Chronic venous insufficiency of lower extremity: Problem comment: Signs: telangiectasias, reticular veins, small and large vericose veins, edema, hemosideran deposition hyperpigmentation. Status: Acute (2) Macrocytic anemia: Problem comment: - Hgb 10.8 on 10/15, has drifted down from 13.1 in mid-2021 - no evidence of acute bleeding, routine outpatient f/u Status: Acute (3) Non-insulin dependent diabetes mellitus: Problem comment: - last A1c as an outpatient 6.0 (08/2023) Status: Acute (4) Cellulitis: Problem comment: - complicated by immunocompromised status (PVD, DM2) - culture obtained at [facility] on 10/11 (MSSA); reviewed sensitivity with pharmacy. Will treat with IV Ancef based on results - repeat culture obtained on admission - continue home dose of torsemide for edema - negative DVT on u/s in clinic on 10/15 - Tubigrip size F, single-layer, apply to right lower extremity from tip of toes to just below the knee. Did apply Adaptic dressing over dry areas of open bullae and covered with Kerlix dressing before applying the Tubigrip. Status: Acute (5) Chronic pain: Status: Acute Plan open draining lesions closed. Cellulitis resolving- abx treatment managed by hospitalist team. Patient to discharge from hospital. BLE- wounds closed, Keep skin well moisturized, continue with tubi-vice president pharmacy size F, apply to bilateral lower extremities. Venous insufficiency, lymphedema evident. Patient educated on importance of adequate consistent compression, but with cutaneous manifestations present on examination, could consider component of microvascular PAD. Wound center to evaluate this further. Patient to follow-up in wound center on 10/21/2022 @ 0800 to get set-up with lymphedema pumps and diabetic shoes/inserts.
--- NOTE | 2022-10-17 09:40 | PM.WSCN ---
Date of Consult Primary Care Provider: Bucky Nicholas MD Consult Narrative Narrative: Jacqueline Greene is a 87 year old female [facility] Medical History (Updated 10/16/22 @ 15:13 by Cristi Manriquez MD) Atrial fibrillation Chronic hypoxemic respiratory failure Chronic pain Chronic venous insufficiency of lower extremity CKD (chronic kidney disease) Essential (primary) hypertension GERD (gastroesophageal reflux disease) Hyperlipidemia Non-insulin dependent diabetes mellitus ORIANA (obstructive sleep apnea) Spinal stenosis Surgical History (Updated 10/15/22 @ 16:38 by Odette Castillo MD) H/O umbilical hernia repair History of hip replacement Hx of right hemicolectomy S/P knee replacement Social History (Updated 10/15/22 @ 19:38 by Odette Castillo MD) Narrative: Lives with in [place], 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 Former smoker, quit remotely. Rare alcohol use. Daily narcotic use secondary to chronic pain. Son Douglas would be medical decision maker if needed. Requests full code status, does not desire long-term intubation. Highest level of school completed/degree received: some college, no degree Smoking Status: Former smoker Do you use any of these nicotine containing products: None How often do you have a drink containing alcohol: monthly or less AUDIT-C Alcohol total score: 1 Non-prescribed substance use: denies use Caffeine: Yes service: No Meds Home Medications and Allergies Home Medications Medication Instructions Recorded Confirmed Type acetaminophen 1,000 mg PO BID 09/01/22 10/15/22 History alendronate 70 mg tablet 70 mg PO QWEEK 09/01/22 10/15/22 History allopurinol 300 mg tablet 300 mg PO DAILY 09/01/22 10/15/22 History calcium carbonate 500 mg calcium 500 mg PO BID 09/01/22 10/15/22 History (1,250 mg) chewable tablet duloxetine 60 mg capsule,delayed 60 mg PO DAILY 09/01/22 10/15/22 History release ferrous sulfate 325 mg (65 mg 325 mg PO DAILY 09/01/22 10/15/22 History iron) tablet (Feosol) hydromorphone 2 mg tablet 2 mg PO BID pain 09/01/22 10/15/22 History metoprolol tartrate 25 mg tablet 25 mg PO BID 09/01/22 10/15/22 History morphine 30 mg tablet,extended 30 mg PO BID chronic pain 09/01/22 10/15/22 History release naloxone 4 mg/actuation nasal spray 4 mg intranasal Q3M PRN opioid 09/01/22 10/15/22 History overdose omeprazole 20 mg capsule,delayed 20 mg PO BID 09/01/22 10/15/22 History release potassium chloride 10 mEq 20 meq PO DAILY 09/01/22 10/15/22 History capsule,extended release pregabalin 25 mg capsule 25 mg PO BID 09/01/22 10/15/22 History ropinirole 2 mg tablet 2 mg PO BID 09/01/22 10/15/22 History rosuvastatin 10 mg tablet 10 mg PO HS 09/01/22 10/15/22 History torsemide 20 mg tablet 40 mg PO BID 09/01/22 10/15/22 History aspirin 81 mg chewable tablet 81 mg PO DAILY 10/15/22 10/15/22 History clindamycin HCl 300 mg capsule 300 mg PO TID 10/15/22 10/15/22 History Allergies Allergy/AdvReac Type Severity Reaction Status Date / Time atorvastatin Allergy Unknown Verified 09/03/22 11:20 fentanyl Allergy Unknown Verified 09/03/22 11:20 gabapentin Allergy Unknown Verified 09/03/22 11:20 metoclopramide [From Reglan] Allergy Unknown Verified 09/03/22 11:20 Exam Const: Vital Signs, click to edit/add: Vital Signs - 24 hr 10/16/22 10:00 10/16/22 13:00 10/16/22 15:00 Temperature 98.1 F Pulse Rate [Right Pulse Oximeter] 68 55 L 55 L Respiratory Rate 16 Blood Pressure [Le ft Arm] 102/59 L Pulse Oximetry 92 Oxygen Delivery Me thod Nasal Cannula Oxygen Flow Rate 1 10/16/22 15:00 10/16/22 15:00 10/16/22 19:46 Temperature 98.0 F 98.5 F Pulse Rate [Right Pulse Oximeter] 55 L 59 L Respiratory Rate 16 16 20 Blood Pressure [Le ft Arm] 108/73 107/59 L Pulse Oximetry 95 95 94 Oxygen Delivery Me thod Nasal Cannula Nasal Cannula Nasal Cannula Oxygen Flow Rate 1 1 1.0 10/16/22 22:16 10/16/22 23:00 02/16/23 02:50 Temperature 98.4 F 98.2 F Pulse Rate [Right Pulse Oximeter] 60 61 Respiratory Rate 18 18 18 Blood Pressure [Le ft Arm] 142/64 H 140/91 H Pulse Oximetry 96 96 95 Oxygen Delivery Me thod Nasal Cannula Nasal Cannula Nasal Cannula Oxygen Flow Rate 1.0 1.0 1.0 10/17/22 07:00 10/17/22 07:00 10/17/22 07:00 Temperature Pulse Rate [Right Pulse Oximeter] 61 61 Respiratory Rate 18 18 Blood Pressure [Le ft Arm] 129/63 Pulse Oximetry 95 95 Oxygen Delivery Me thod Nasal Cannula Nasal Cannula Oxygen Flow Rate 1 1 Assessment and Plan Assessment and plan Plan open draining lesions closed. Cellulitis resolving. BLE- Keep skin well moisturized, continue with tubi-bus van driver size F, apply to bilateral lower extremities. Patient to follow-up in wound center on 10/21/2022 @ 0800 to get set-up with lymphedema pumps and diabetic shoes/inserts.
[2022-10-17 11:00] VITALS: BP 130/70; PULSE 73; RESP 18; TEMP 36.6; O2SAT 95
[2022-10-17] MEDS: SODIUM CHLORIDE 0.9 % (FLUSH) 10 ML SYRINGE 5 ML IVF ×2 (11:35→12:30)
--- NOTE | 2022-10-17 12:19 | PC.SOCIAL ---
Discharge Planning: Pt resides at home in [place] with her spouse. Pt indicates that her daughter and son assist them with medications, and a home care specialist is involved to assist with needs. Pt states that she will return home but that she has looked at [facility] now that [facility] in [place] has closed (where she was on a waiting list). SW encouraged her to place her naming on the waiting list at [place], and client states that she will do this when she returns home. Pt declines senior linkage line senior engineering associate care assessment but requests assistance for meal delivery. [facility] confirms that they now deliver to [place], so information sheet provided to client with this information. Dtr to transport around 1:00 today. No further SW needs at this time.
--- NOTE | 2022-10-17 14:31 | PC.NURSE ---
Pt alert and oriented x3. Pt reporting pain 2/10 in right leg, pain managed with scheduled pain meds. Cellulitis in right leg did not pass outline. Pt up SBA with walker and gait belt when walking. Pt tolerating regular diet. Verbal and written education given to pt and family member, verbalized understanding. Pt left via wheelchair with family member. IV taken out at discharge.
--- NOTE | 2022-10-17 15:58 | P.DS_ITS ---
DS: Providers Provider Time Seen by Provider: 11:00 Date Seen: 10/17/22 Date of admission: 10/15/22 15:35 Primary care physician: Bucky Nicholas MD Admitting Clinician: Odette Castillo MD Consults: 10/15/22 16:05 Consult to Physical Therapy [CONS] Routine Comment: Reason(s) for PT Consult:: Evaluate and Treat Any Restrictions?:: No Restrictions 10/15/22 16:06 Consult to Occupational Therapy [CONS] Routine Comment: Reason(s) for OT Consult:: Evaluate and Treat Any Restrictions?:: No Restrictions 10/15/22 16:07 Consult to Wound Care [CONS] Routine Comment: Consulting Provider: Mary Mota 10/17/22 07:28 Consult to Bakery Technician [CONS] Routine Comment: Reason for Consult:: Social Service Consult Attending Physician on discharge: Cristi Manriquez MD Date of Discharge: 10/17/22 DS: Diagnosis Discharge Diagnosis (1) Cellulitis: Status: Acute Problem details: - complicated by immunocompromised status (PVD, DM2) - culture obtained at [facility] on 10/11 (MSSA); reviewed sensitivity with pharmacy. Will treat with IV Ancef based on results - repeat culture obtained on admission - continue home dose of torsemide for edema - negative DVT on u/s in clinic on 10/15 - Tubigrip size F, single-layer, apply to right lower extremity from tip of toes to just below the knee. Did apply Adaptic dressing over dry areas of open bullae and covered with Kerlix dressing before applying the Tubigrip. (2) Chronic venous insufficiency of lower extremity: Status: Acute Problem details: Signs: telangiectasias, reticular veins, small and large vericose veins, edema, hemosideran deposition hyperpigmentation. (3) Chronic hypoxemic respiratory failure: Status: Acute Problem details: Utilizes oxygen supplementation at home only periodically when she thinks she might need it. (4) Chronic pain: Status: Acute (5) Essential (primary) hypertension: Status: Acute Problem details: - continue home metoprolol (6) Non-insulin dependent diabetes mellitus: Status: Acute Problem details: - last A1c as an outpatient 6.0 (08/2023) (7) Gait instability: Status: Acute (8) Frequent falls: Status: Acute Problem details: - likely multifactorial (cellulitis, PVD, iatrogenic) - PT and OT evaluations initiated (9) Acquired pes planus of both feet: Status: Acute (10) Age-related physical debility: Status: Acute (11) Hearing difficulty of both ears: Status: Acute (12) Macrocytic anemia: Status: Acute Problem details: - Hgb 10.8 on 10/15, has drifted down from 13.1 in mid-2021 - no evidence of acute bleeding, routine outpatient f/u (13) CKD (chronic kidney disease): Status: Acute Problem details: - GFR 63 10/15 (14) ORIANA (obstructive sleep apnea): Status: Acute Problem details: - not on CPAP - continue prn supplemental oxygen overnight DS: Summary Hospital Course Hospital Course: Jacqueline Greene is a 87 year old female who presented to the hospital for a direct admission, after failing outpatient antibiotics for right lower extremity cellulitis. Jacqueline was noted to have cellulitis of her LEFT leg last fall; was on antibiotics for approximately 4 weeks to fully clear this up. Approximately 1 week ago, she started having erythema and worsening pain of her RIGHT lower extremity.? She was seen in clinic on 10/11, culture collected, and she was treated with IM Rocephin and oral clindamycin. Today, she re-presented to the clinic and saw her PCP, Dr. Nicholas, who noted that her cellulitis had significantly worsened and was not accompanied by more edema and draining vesicular lesions. Clinic findings: ?- Culture was reviewed; exhibiting Staph aureus resistant to clindamycin ?- right lower extremity ultrasound obtained in the clinic, negative for DVT ?- afebrile; WBC 6.2, Hgb 10.8, platelets 212 Given failure of outpatient antibiotics and immunocompromised status (PVD, DM2, recurrent cellulitis), patient admitted to the hospital for IV antibiotic management. When I see Jacqueline, her only complaint is lower extremity pain.? She notes a history of chronic pain and is on daily narcotics.Jacqueline Greene is a 87 year old female who presented to the hospital for a direct admission, after failing outpatient antibiotics for right lower extremity cellulitis. Jacqueline was noted to have cellulitis of her LEFT leg last fall; was on antibiotics for approximately 4 weeks to fully clear this up. Approximately 1 week ago, she started having erythema and worsening pain of her RIGHT lower extremity.? She was seen in clinic on 10/11, culture collected, and she was treated with IM Rocephin and oral clindamycin. Today, she re-presented to the clinic and saw her PCP, Dr. Nicholas, who noted that her cellulitis had significantly worsened and was not accompanied by more edema and draining vesicular lesions. Clinic findings: ?- Culture was reviewed; exhibiting Staph aureus resistant to clindamycin ?- right lower extremity ultrasound obtained in the clinic, negative for DVT ?- afebrile; WBC 6.2, Hgb 10.8, platelets 212 Given failure of outpatient antibiotics and immunocompromised status (PVD, DM2, recurrent cellulitis), patient admitted to the hospital for IV antibiotic management. When I see Jacqueline, her only complaint is lower extremity pain.? She notes a history of chronic pain and is on daily narcotics. In the short period of time that the patient was hospitalized, 2 days, her lower extremity edema improved substantially. The bullae on her lower extremity improved. The erythema improved. We did elevate her legs when she was not bearing weight. We applied compression support with Tubigrip sized for her leg. The weeping from the open bowl a stopped during the short period time that she was here. We did make a referral for her to be assessed and treated at the [facility], in regard to bilateral chronic venous insufficiency and bilateral pes planus deformities. Status at Discharge Functional status at discharge: uses cane/walker Overall status at discharge: patient is progressing back to baseline Time Spent with Patient Time attestation: Total time spent providing and/or coordinating discharge services: Time spent: Greater than 30 minutes Exam Narrative: Exam Narrative: Appears comfortable no acute distress when I see her. Transfers from supine to sitting and sitting to standing with standby assist and use of walker. Ambulates in halls with walker, gait belt, standby assist.? Ambulatory oxygen saturation at rest drops as low as low to mid 80s.? With oxygen supplementation at 2 liters/minute venous cannula continuously and walking her oxygen saturations run in lower to mid 90s.? Edema, erythema, hyperpigmentation, telangiectasias, reticular veins, small and large varicose veins are noted in bilateral lower extremities.? Does have some dried open bollae on the right lower extremity, reportedly much improved from yesterday.? No purulent drainage.? Serous crusting only noted. Right calf circumference at largest area measures 36 cm. Profound kyphosis, chronic.? Lungs with fine end inspiratory rales bilaterally.? No wheezing or rhonchi.? Heart tones with regular rhythm.? Abdomen is thin with active bowel sounds, soft, nontender.? No focal motor neurologic deficits. Const: Vital Signs, click to edit/add: Vital Signs - 24 hr 10/16/22 19:46 10/16/22 22:16 10/16/22 23:00 Temperature 98.5 F 98.4 F Pulse Rate [Right Pulse Oximeter] 59 L 60 Respiratory Rate 20 18 18 Blood Pressure [Le ft Arm] 107/59 L 142/64 H Pulse Oximetry 94 96 96 Oxygen Delivery Me thod Nasal Cannula Nasal Cannula Nasal Cannula Oxygen Flow Rate 1.0 1.0 1.0 10/17/22 02:50 10/17/22 07:00 10/17/22 07:00 Temperature 98.2 F Pulse Rate [Right Pulse Oximeter] 61 61 61 Respiratory Rate 18 18 Blood Pressure [Le ft Arm] 140/91 H 129/63 Pulse Oximetry 95 95 Oxygen Delivery Me thod Nasal Cannula Nasal Cannula Oxygen Flow Rate 1.0 1 10/17/22 07:00 10/17/22 11:00 Temperature 97.9 F Pulse Rate [Right Pulse Oximeter] 73 Respiratory Rate 18 18 Blood Pressure [Le ft Arm] 130/70 Pulse Oximetry 95 95 Oxygen Delivery Me thod Nasal Cannula Room Air Oxygen Flow Rate 1 Documenting provider has reviewed patient's vital signs: yes Discharge Plan Discharge Disposition: Home, Self-Care Date of Admission: 10/15/22 15:35 Attending Provider on Discharge: Cristi Manriquez Consulting Providers: Mary Mota Primary Care Provider: Bucky Nicholas Condition: Improved Anticipated Discharge Date/Time: 10/17/22 13:00 Discharge Medications: New cephalexin 500 mg capsule 500 mg PO TID Qty: 20 0RF Lactobacillus acidophilus 0.5 mg (100 million cell) Tablet 2 tab PO TIDWM 30 Days Qty: 60 0RF Continued aspirin 81 mg tablet,chewable 81 mg PO DAILY potassium chloride 10 mEq capsule, extended release 20 meq PO DAILY Label Comments: TAKE 2 CAPSULES BY MOUTH ONCE DAILY WITH A MEAL. torsemide 20 mg tablet 40 mg PO BID Label Comments: TAKE 2 TABLETS BY MOUTH TWICE A DAY alendronate 70 mg tablet 70 mg PO QWEEK Rx Instructions: ON TUESDAYS morphine 30 mg tablet extended release 30 mg PO BID Label Comments: TAKE 1 TABLET (30 MG) BY MOUTH TWO TIMES DAILY. hydromorphone 2 mg tablet 2 mg PO BID ropinirole 2 mg tablet 2 mg PO BID Label Comments: TAKE 1 TABLET (2 MG) BY MOUTH IN THE MORNING AND 1 TABLET (2 MG) IN THE EVENING. omeprazole 20 mg capsule,delayed release(DR/EC) 20 mg PO BID Label Comments: TAKE 1 CAPSULE BY MOUTH IN THE MORNING AND 1 CAPSULE IN THE EVENING. TAKE BEFORE MEALS. allopurinol 300 mg tablet 300 mg PO DAILY Label Comments: TAKE 1 TABLET BY MOUTH ONCE DAILY. rosuvastatin 10 mg tablet 10 mg PO HS Label Comments: TAKE 1 TABLET BY MOUTH EVERYDAY AT BEDTIME metoprolol tartrate 25 mg tablet 25 mg PO BID Label Comments: TAKE 1 TABLET BY MOUTH IN THE MORNING AND 1 TABLET IN THE EVENING. duloxetine 60 mg capsule,delayed release(DR/EC) 60 mg PO DAILY Label Comments: TAKE 1 CAPSULE BY MOUTH ONCE DAILY. pregabalin 25 mg capsule 25 mg PO BID Label Comments: TAKE 1 CAPSULE (25 MG) BY MOUTH TWO TIMES DAILY. naloxone 4 mg/actuation spray,non-aerosol 4 mg INTRANASAL Q3M PRN (Reason: opioid overdose) Label Comments: INHALE 1 SPRAY INTO NOSTRIL NEEDED FOR ACCIDENTAL OVERDOSE. ADDITIONAL DOSES MAY BE GIVEN EVERY 2-3 MINUTES ALTERNATING NOTRILS. acetaminophen 1,000 mg PO BID ferrous sulfate [Feosol] 325 mg (65 mg iron) tablet 325 mg PO DAILY calcium carbonate 500 mg calcium (1,250 mg) tablet,chewable 500 mg PO BID Discontinued clindamycin HCl 300 mg capsule 300 mg PO TID Label Comments: TAKE 1 CAPSULE (300 MG) BY MOUTH THREE TIMES DAILY FOR 7 DAYS. Discharge Orders: Discharge Order (Routine); Ordered 10/17/22 Ordered By: Cristi Manriquez Patient Education: Cephalexin (By mouth), Probiotic (By mouth) (Acidophilus Probiotic Blend, Culturelle,..., Probiotic (By mouth), Cellulitis (GEN), Venous Insufficiency (GEN) Additional Instructions: 1. [facility] appointment, chronic bilateral venous insufficiency and bilateral pes planus deformity; 2. Bilateral lower extremity compression stockings/wraps are advisable for you, but we will hold off on initiating this order for now until you have further assessment and recommendations with at the [facility]; 3. Study and consider assisted living setting for yourself and your . Activity Level: Activity as Tolerated and Use Walker Discharge Diet: Regular Follow Up Appointments: Bucky Nicholas MD [Primary Care Provider] - 10/28/22 9:40 am (2-3 weeks, reassess post-hospitalization for right lower extremity cellulitis, chronic bilateral venous insufficiency, bilateral pes planus, unstable gait, debility - consider assisted living) Mary Mota CNP [Nurse Practitioner] - 10/21/22 8:00 am ([facility]) Forms: [employer] Info Instructions
== END 2022-10-17 13:45 | disposition home or self-care (01) | DRG 603 ==
PROVIDERS: Admitting Provider Family Medicine; PCP Family Medicine; Visit Provider Family Medicine
DX: L03.116 Cellulitis of left lower limb (principal); J96.11 Chronic respiratory failure with hypoxia; Z79.84 Long term (current) use of oral hypoglycemic drugs; I87.2 Venous insufficiency (chronic) (peripheral); I12.9 Hypertensive chronic kidney disease with stage 1 through stage 4 chronic kidney disease, or unspecified chronic kidney disease; I10 Essential (primary) hypertension; R29.6 Repeated falls; G47.33 Obstructive sleep apnea (adult) (pediatric); D53.9 Nutritional anemia, unspecified; G89.29 Other chronic pain; R26.81 Unsteadiness on feet; M21.41 Flat foot [pes planus] (acquired), right foot; M21.42 Flat foot [pes planus] (acquired), left foot; R54 Age-related physical debility; H91.93 Unspecified hearing loss, bilateral; Z99.81 Dependence on supplemental oxygen; E11.22 Type 2 diabetes mellitus with diabetic chronic kidney disease; N18.9 Chronic kidney disease, unspecified
CPT/HCPCS: 36415; 80048; 82962; 85025; 86140; 87070; 87502; 87634; 87635; 97110; 97112; 97116; 97162; 97165; 97535; A9270; J0690; J7050

== ENCOUNTER 2022-10-21 08:12 | Outpatient (CLI) | payer MEDICARE, BC, SELFPAY | END 2022-10-21 08:13 | disposition home or self-care (01) | PROVIDERS: PCP Family Medicine; Visit Provider Nurse Practitioner Family | DX: E11.42 Type 2 diabetes mellitus with diabetic polyneuropathy (principal); I73.9 Peripheral vascular disease, unspecified; I89.0 Lymphedema, not elsewhere classified; I87.2 Venous insufficiency (chronic) (peripheral); Z79.84 Long term (current) use of oral hypoglycemic drugs | CPT/HCPCS: 99213 ==

== ENCOUNTER 2022-11-04 10:58 | Outpatient (CLI) | payer MEDICARE, BC, SELFPAY | END 2022-11-04 10:59 | disposition home or self-care (01) | LOC: WOUND 10:58 | PROVIDERS: PCP Family Medicine; Visit Provider Nurse Practitioner Family | DX: I87.311 Chronic venous hypertension (idiopathic) with ulcer of right lower extremity (principal); L97.812 Non-pressure chronic ulcer of other part of right lower leg with fat layer exposed | CPT/HCPCS: 97597 ==

== ENCOUNTER 2022-11-06 14:55 | Outpatient (CLI) | payer MEDICARE, BC, SELFPAY ==
--- NOTE | 2022-11-06 15:00 | CRLHL7_ITS ---
For Patients: As a result of the 21st Century Cures Act, medical imaging exams and procedure reports are released immediately into your electronic medical record. You may view this report before your referring provider. If you have questions, please contact your health care provider. BILATERAL LOWER EXTREMITY ARTERIAL ULTRASOUND CLINICAL HISTORY: Evaluate for peripheral arterial disease. COMPARISON: None. TECHNIQUE: The bilateral lower extremity arteries were examined per exam specific protocol with allen-scale ultrasound, color-flow and Doppler spectral analysis. Peak systolic velocities (PSV), Doppler waveform quality and Velocity Ratios if applicable, were documented at sites per exam specific protocol. FINDINGS: Right lower extremity: Elevated velocity in the mid-femoral artery up to 222 cm/sec with velocity ratio of 1.8. Unable to visualize the right peroneal artery, likely occluded. Left lower extremity: No evidence of a hemodynamically significant stenosis. RIGHT: PSV (cm/second). Waveform (Tri-T, Bi-B Linn-M). SOLDERER ELECTRONIC: 101. M. DFA: 67. M. SFA PRX: 122. M. SFA MID: 222. M. SFA DISTAL: 108. M. POP A: 59. M. ELISE A: N/V. N/V. PROTECTIVE SERVICES CASE WORKER: 68. M. ARTURO: 31. M. DPA: 50. M. LEFT: PSV (cm/second). Waveform (Tri-T, Bi-B Linn-M). SOLDERER ELECTRONIC: 127. M. DFA: 84. M. SFA PRX: 132. M. SFA MID: 131. M. SFA DISTAL: 148. M. POP A: 51. M. ELISE A: 52. M. PROTECTIVE SERVICES CASE WORKER: 13. M. ARTURO: 119. M. DPA: 68. M. IMPRESSION: 1. Right lower extremity: -Monophasic waveforms throughout the arterial vasculature suggestive of aortoiliac inflow disease. Elevated velocity in the mid- superficial femoral artery of 222 cm/sec with elevated velocity ratio of 1.8 suggestive of a <50% stenosis . -Peroneal artery is not well visualized, likely occluded. 2. Left lower extremity: -Monophasic waveforms throughout the arterial vasculature suggestive of aortoiliac inflow disease. -Elevated velocity in the ARTURO of 119 cm/s suggestive of a stenosis. -Otherwise, no focal elevated velocity or elevated velocity ratio to suggest a hemodynamically significant stenosis. Stefanie Decker M.D. Vascular and Interventional Radiology [employer] [facility] [email or web address] [place]/Dictated by: Stefanie Decker MD @ 11/07/2022 8:48:00 PM (Electronically Signed)
== END 2022-11-06 14:56 | disposition home or self-care (01) ==
LOC: US 14:57
PROVIDERS: PCP Family Medicine; Visit Provider Nurse Practitioner Family
DX: I77.1 Stricture of artery (principal)
CPT/HCPCS: 93926

== ENCOUNTER 2022-11-11 10:10 | Outpatient (CLI) | payer MEDICARE, BC, SELFPAY | END 2022-11-11 10:11 | disposition home or self-care (01) | LOC: WOUND 10:11 | PROVIDERS: PCP Family Medicine; Visit Provider Nurse Practitioner Family | DX: I87.311 Chronic venous hypertension (idiopathic) with ulcer of right lower extremity (principal); L97.812 Non-pressure chronic ulcer of other part of right lower leg with fat layer exposed; I89.0 Lymphedema, not elsewhere classified | CPT/HCPCS: 99213 ==

== ENCOUNTER 2022-11-13 23:41 | Emergency (ER) | payer MEDICARE, BC, SELFPAY ==
[2022-11-13 23:48] VITALS: BP 150/84; PULSE 94; RESP 16; TEMP 36.4; O2SAT 94; BMI 27.8
--- NOTE | 2022-11-14 00:14 | ED.GENADULT ---
HPI - General Adult General Time Seen by Provider: 00:04 Date Seen: 11/14/22 Chief complaint: Head Injury/Pain Stated complaint: fall, head lac Time Seen by Provider: 11/13/22 23:43 Source: patient and RN notes reviewed Mode of arrival: ambulatory Limitations: no limitations History of Present Illness HPI narrative: 87-year-old female who comes in today with head injury. Patient says she got out of bed and fell backward, hitting her head. No loss of consciousness. Denies any other injury. Denies any recent illness. Related Data Home Medications Medication Instructions Recorded Confirmed acetaminophen 1,000 mg PO BID 09/01/22 11/14/22 alendronate 70 mg tablet 70 mg PO QWEEK 09/01/22 11/14/22 allopurinol 300 mg tablet 300 mg PO DAILY 09/01/22 11/14/22 calcium carbonate 500 mg calcium 500 mg PO BID 09/01/22 10/15/22 (1,250 mg) chewable tablet duloxetine 60 mg capsule,delayed 60 mg PO DAILY 09/01/22 11/14/22 release ferrous sulfate 325 mg (65 mg 325 mg PO DAILY 09/01/22 11/14/22 iron) tablet (Feosol) hydromorphone 2 mg tablet 2 mg PO BID pain 09/01/22 11/14/22 metoprolol tartrate 25 mg tablet 25 mg PO BID 09/01/22 11/14/22 morphine 30 mg tablet,extended 30 mg PO BID chronic pain 09/01/22 11/14/22 release naloxone 4 mg/actuation nasal spray 4 mg intranasal Q3M PRN opioid 09/01/22 10/15/22 overdose omeprazole 20 mg capsule,delayed 20 mg PO BID 09/01/22 11/14/22 release potassium chloride 10 mEq 20 meq PO DAILY 09/01/22 11/14/22 capsule,extended release pregabalin 25 mg capsule 25 mg PO BID 09/01/22 11/14/22 ropinirole 2 mg tablet 2 mg PO BID 09/01/22 11/14/22 rosuvastatin 10 mg tablet 10 mg PO HS 09/01/22 11/14/22 torsemide 20 mg tablet 40 mg PO BID 09/01/22 11/14/22 aspirin 81 mg chewable tablet 81 mg PO DAILY 10/15/22 11/14/22 Previous Rx's Medication Instructions Recorded Lactobacillus acidophilus 0.5 mg 2 tab PO TIDWM 30 days #60 tabs 10/17/22 (100 million cell) tablet cephalexin 500 mg capsule 500 mg PO TID #20 caps 10/17/22 Allergies Allergy/AdvReac Type Severity Reaction Status Date / Time atorvastatin Allergy Unknown Verified 09/03/22 11:20 fentanyl Allergy Unknown Verified 09/03/22 11:20 gabapentin Allergy Unknown Verified 09/03/22 11:20 metoclopramide [From Reglan] Allergy Unknown Verified 09/03/22 11:20 [facility] Medical History (Updated 11/14/22 @ 01:26 by Ezequiel Landeros MD) Acquired pes planus of both feet Age-related physical debility Atrial fibrillation Chronic hypoxemic respiratory failure Chronic pain Chronic venous insufficiency of lower extremity CKD (chronic kidney disease) Essential (primary) hypertension Gait instability GERD (gastroesophageal reflux disease) Hearing difficulty of both ears Hyperlipidemia Non-insulin dependent diabetes mellitus ORIANA (obstructive sleep apnea) Spinal stenosis Surgical History (Updated 10/15/22 @ 16:38 by Odette Castillo MD) H/O umbilical hernia repair History of hip replacement Hx of right hemicolectomy S/P knee replacement Social History (Updated 10/15/22 @ 19:38 by Odette Castillo MD) Narrative: Lives with in [place], 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 Former smoker, quit remotely. Rare alcohol use. Daily narcotic use secondary to chronic pain. Son Douglas would be medical decision maker if needed. Requests full code status, does not desire long-term intubation. Highest level of school completed/degree received: some college, no degree Smoking Status: Former smoker Do you use any of these nicotine containing products: None How often do you have a drink containing alcohol: monthly or less AUDIT-C Alcohol total score: 1 Non-prescribed substance use: denies use Caffeine: Yes service: No Exam Narrative: Exam Narrative: General: Well-developed and well-nourished, no acute distress Head: Left posterior scalp hematoma with 2 cm partial-thickness laceration Eyes: Pupils are equal reactive, extraocular motions intact, conjunctiva clear ENT: External nose and ears are normal, posterior pharynx without erythema or exudate Neck: No midline cervical tenderness, full spontaneous range of motion the neck, trachea midline, no adenopathy Heart: Regular rate and rhythm no murmurs or thrills Lungs: Clear to auscultation bilaterally without wheezes or crackles Abdomen: Soft, nontender, nondistended with active bowel sounds Musculoskeletal: No tenderness, deformity, or edema Neurologic: Awake, alert, and oriented x3, no gross focal neurologic deficits, cranial nerves intact as tested Psych: Mood and affect are appropriate Skin: No rashes Const: Vital Signs, click to edit/add: Vital Signs - 24 hr 11/13/22 23:48 11/14/22 00:52 11/14/22 00:58 Temperature 97.6 F Pulse Rate [Pulse Oximeter] 94 56 L 58 L Respiratory Rate 16 14 16 Blood Pressure [Ri ght Upper Arm] 150/84 H 98/53 L Pulse Oximetry 94 96 96 Oxygen Delivery Me thod Nasal Cannula Nasal Cannula Oxygen Flow Rate 1 1 11/14/22 01:21 Temperature Pulse Rate [Pulse Oximeter] 59 L Respiratory Rate 18 Blood Pressure [Ri ght Upper Arm] 101/59 L Pulse Oximetry 96 Oxygen Delivery Me thod Nasal Cannula Oxygen Flow Rate 1 Course Course Hospital Course: Patient seen and examined, prior records reviewed. Patient presents today after fall at home. Says she lost her balance and fell backward. Denies preceding chest pain, palpitations, denies loss of conscious, denies lightheadedness. On exam, she has a left occipital hematoma with a partial-thickness laceration overlying this. No other external signs of injury. No tenderness to palpation of the cervical, thoracic, or lumbar spine. No chest wall tenderness. No abdominal tenderness. No tenderness or deformity of the upper lower extremities. Reevaluation(s) Reevaluation #1: Procedure: Laceration repair, left occipital scalp, 2 cm full-thickness laceration Risks and benefits discussed with patient, verbal consent was obtained. Wound was prepped with wound cleanser. Wound explored, no foreign bodies and no active bleeding. Laceration was closed with running 5 0 Ethilon suture. Patient tolerated this well. Patient waiting for CT scan. If this is negative, stable for discharge Time: 01:24 Reevaluation #2: CT scan of the head neck independently interpreted by me negative for acute findings. Patient is stable for discharge. Time: 02:43 Vital Signs Vital signs: Initial Vital Signs Temperature 97.6 F 11/13/22 23:48 Temperature Source Temporal Artery Scan 11/13/22 23:48 Pulse Rate 94 11/13/22 23:48 Pulse Rhythm 11/13/22 23:48 Respiratory Rate 16 11/13/22 23:48 Blood Pressure 150/84 H 11/13/22 23:48 Blood Pressure Mean 106 11/13/22 23:48 Pulse Oximetry 94 11/13/22 23:48 Vital Signs Temperature 97.6 F 11/13/22 23:48 Pulse Rate 94 11/13/22 23:48 Respiratory Rate 16 11/13/22 23:48 Blood Pressure 150/84 H 11/13/22 23:48 Pulse Oximetry 94 11/13/22 23:48 Temperature 97.6 F 11/13/22 23:48 Pulse Rate 59 L 11/14/22 01:21 Respiratory Rate 18 11/14/22 01:21 Blood Pressure 101/59 L 11/14/22 01:21 Pulse Oximetry 96 11/14/22 01:21 Oxygen Delivery Method 11/14/22 01:21 Oxygen Flow Rate 1 11/14/22 01:21 Discharge Plan Discharge Clinical Impression: Traumatic hematoma of scalp, Laceration of scalp Patient Disposition: Home w/ Parent or Adult Condition: Stable Instructions: Laceration (DC), Scalp Contusion in Adults (ED) Additional Instructions: Ice your head 15-20 minutes at a time every 2-3 hours while awake for 24 hours. Sutures should be removed in 1 week Activity Level: Activity as Tolerated Discharge Diet: Regular Prescriptions: No Action aspirin 81 mg tablet,chewable 81 mg PO DAILY cephalexin 500 mg capsule 500 mg PO TID Qty: 20 0RF Lactobacillus acidophilus 0.5 mg (100 million cell) Tablet 2 tab PO TIDWM 30 Days Qty: 60 0RF potassium chloride 10 mEq capsule, extended release 20 meq PO DAILY Label Comments: TAKE 2 CAPSULES BY MOUTH ONCE DAILY WITH A MEAL. torsemide 20 mg tablet 40 mg PO BID Label Comments: TAKE 2 TABLETS BY MOUTH TWICE A DAY alendronate 70 mg tablet 70 mg PO QWEEK Rx Instructions: ON TUESDAYS morphine 30 mg tablet extended release 30 mg PO BID Label Comments: TAKE 1 TABLET (30 MG) BY MOUTH TWO TIMES DAILY. hydromorphone 2 mg tablet 2 mg PO BID ropinirole 2 mg tablet 2 mg PO BID Label Comments: TAKE 1 TABLET (2 MG) BY MOUTH IN THE MORNING AND 1 TABLET (2 MG) IN THE EVENING. omeprazole 20 mg capsule,delayed release(DR/EC) 20 mg PO BID Label Comments: TAKE 1 CAPSULE BY MOUTH IN THE MORNING AND 1 CAPSULE IN THE EVENING. TAKE BEFORE MEALS. allopurinol 300 mg tablet 300 mg PO DAILY Label Comments: TAKE 1 TABLET BY MOUTH ONCE DAILY. rosuvastatin 10 mg tablet 10 mg PO HS Label Comments: TAKE 1 TABLET BY MOUTH EVERYDAY AT BEDTIME metoprolol tartrate 25 mg tablet 25 mg PO BID Label Comments: TAKE 1 TABLET BY MOUTH IN THE MORNING AND 1 TABLET IN THE EVENING. duloxetine 60 mg capsule,delayed release(DR/EC) 60 mg PO DAILY Label Comments: TAKE 1 CAPSULE BY MOUTH ONCE DAILY. pregabalin 25 mg capsule 25 mg PO BID Label Comments: TAKE 1 CAPSULE (25 MG) BY MOUTH TWO TIMES DAILY. naloxone 4 mg/actuation spray,non-aerosol 4 mg INTRANASAL Q3M PRN (Reason: opioid overdose) Label Comments: INHALE 1 SPRAY INTO NOSTRIL NEEDED FOR ACCIDENTAL OVERDOSE. ADDITIONAL DOSES MAY BE GIVEN EVERY 2-3 MINUTES ALTERNATING NOTRILS. acetaminophen 1,000 mg PO BID ferrous sulfate [Feosol] 325 mg (65 mg iron) tablet 325 mg PO DAILY calcium carbonate 500 mg calcium (1,250 mg) tablet,chewable 500 mg PO BID Follow Up/Referrals: Bucky Nicholas MD [Primary Care Provider] - Stand Alone Forms: [facility] Info Instructions
--- NOTE | 2022-11-14 00:30 | CRLHL7_ITS ---
For Patients: As a result of the Century Cures Act, medical imaging exams and procedure reports are released immediately into your electronic medical record. You may view this report before your referring provider. If you have questions, please contact your health care provider. INDICATION: Fall TECHNIQUE: Head CT without contrast. COMPARISON: September 01, 2022 FINDINGS: CSF spaces: Within normal limits for age. Brain parenchyma: There are mild nonspecific low attenuation white matter changes consistent with chronic microvascular disease. No sign of mass, hemorrhage, or midline shift. Skull base and calvarium: The visualized paranasal sinuses and mastoid air cells demonstrate no acute or significant findings. The visualized orbits are grossly unremarkable. No skull fractures. There is intracranial atherosclerosis. Small right frontal scalp contusion and left posterolateral scalp contusion and laceration. IMPRESSION: No acute intracranial hemorrhage or skull fracture. Small right frontal scalp contusion and left posterolateral scalp contusion and laceration. Please note that all CT scans at this facility use dose modulation, iterative reconstruction, and/or weight-based dosing when appropriate to reduce radiation dose to as low as reasonably achievable. Dictated by Mana Pineda MD @ 11/14/2022 2:41:58 AM (Electronically Signed)
--- NOTE | 2022-11-14 00:30 | CRLHL7_ITS ---
For Patients: As a result of the Century Cures Act, medical imaging exams and procedure reports are released immediately into your electronic medical record. You may view this report before your referring provider. If you have questions, please contact your health care provider. INDICATION: Fall TECHNIQUE: CT cervical spine without contrast. COMPARISON: May 11, 2021 FINDINGS: Vertebral alignment: Alignment is normal. Vertebrae: There are no fractures or suspicious bony lesions. Discs and facet joints: There are moderate to severe multilevel degenerative disc and facet changes. Extraspinal findings: Paraspinous soft tissues are unremarkable. IMPRESSION: 1. No sign of acute injury. 2. Multilevel degenerative spondylosis. Please note that all CT scans at this facility use dose modulation, iterative reconstruction, and/or weight-based dosing when appropriate to reduce radiation dose to as low as reasonably achievable. Dictated by Mana Pineda MD @ 11/14/2022 2:37:49 AM (Electronically Signed)
[2022-11-14 00:52] VITALS: PULSE 56; RESP 14; O2SAT 96
--- NOTE | 2022-11-14 00:54 | ED.NURSE ---
Patient placed on 1L NC due to oxygen desaturating, while resting, into the mid-low 80's on RA briefly and then returning back into the low 90's.
[2022-11-14 00:58] VITALS: BP 98/53; PULSE 58; RESP 16; O2SAT 96
[2022-11-14 01:21] VITALS: BP 101/59; PULSE 59; RESP 18; O2SAT 96
[2022-11-14 02:46] VITALS: BP 120/68; PULSE 67; RESP 16; O2SAT 97
--- NOTE | 2022-11-14 02:47 | ED.NURSE ---
Patient's daughter Mariza called and updated. She states she will be here in approximately one hour.
--- NOTE | 2022-11-14 03:14 | ED.NURSE ---
Patient ambulated with SBA, gb and walker. Tolerated well. Patient denied pain or discomfort. Waiting for daughter to provide transport home.
== END 2022-11-14 03:56 | disposition home or self-care (01) ==
PROVIDERS: Emergency Provider Family Medicine; PCP Family Medicine
DX: S01.01XA Laceration without foreign body of scalp, initial encounter (principal); W18.30XA Fall on same level, unspecified, initial encounter
CPT/HCPCS: 12001; 70450; 72125; 99283; 99284

== ENCOUNTER 2022-12-17 14:11 | Outpatient (CLI) | payer MEDICARE, BC, SELFPAY | END 2022-12-17 14:12 | disposition home or self-care (01) | LOC: WOUND 14:12 | PROVIDERS: PCP Family Medicine; Visit Provider Nurse Practitioner Family | DX: I87.311 Chronic venous hypertension (idiopathic) with ulcer of right lower extremity (principal); L97.812 Non-pressure chronic ulcer of other part of right lower leg with fat layer exposed; I87.2 Venous insufficiency (chronic) (peripheral); I73.9 Peripheral vascular disease, unspecified; E11.42 Type 2 diabetes mellitus with diabetic polyneuropathy; Z79.84 Long term (current) use of oral hypoglycemic drugs | CPT/HCPCS: 99213 ==

== ENCOUNTER 2023-02-03 12:46 | Observation (INO) | payer MEDICARE, BC, SELFPAY ==
[2023-02-03] VITALS (21 sets, daily range): BP systolic 100–201; BP diastolic 52–143; PULSE 69–92; RESP 12–15; TEMP 36.2–37.2; O2SAT 86–96; BMI 20.5; BMI 20.4
--- NOTE | 2023-02-03 13:11 | ED_ITS ---
HPI - General Adult General Time Seen by Provider: 13:11 Date Seen: 02/03/23 Chief complaint: Fall/Minor Trauma Stated complaint: Fall Time Seen by Provider: 02/03/23 13:21 Source: patient, RN notes reviewed and old records reviewed Mode of arrival: ambulatory Limitations: no limitations History of Present Illness HPI narrative: Jacqueline is a very pleasant frail 87-year-old woman brought to the emergency room by EMS for evaluation of frequent falls. Jacqueline is extremely hard of hearing to the point that we had to communicate through writing. She notes that she has had multiple fall starting last night. She states that every time she has hit her head. She does not know if there has been loss of consciousness. In regards to discomfort she states she hurts ?all over?. She also agrees that she has some chest pain. She is requesting water but I have asked her not to drink at this time. EMS notes that patient had fallen last night in her home and was banging on the wall until someone finally helped her this morning. Patient denies any recent cough or cold or fever. She has not had any abdominal pain or diarrhea. EMS was unable to collar her given her severe kyphosis and thus used blanket and tape to create him on immobilization device around her neck. A review of her records notes history of COPD, home oxygen use as needed. History of chronic renal failure. Related Data Home Medications Medication Instructions Recorded Confirmed acetaminophen 1,000 mg PO BID 09/01/22 02/03/23 alendronate 70 mg tablet 70 mg PO QWEEK 09/01/22 02/03/23 allopurinol 300 mg tablet 300 mg PO DAILY 09/01/22 02/03/23 calcium carbonate 500 mg calcium 500 mg PO BID 09/01/22 02/03/23 (1,250 mg) chewable tablet duloxetine 60 mg capsule,delayed 60 mg PO DAILY 09/01/22 02/03/23 release ferrous sulfate 325 mg (65 mg 325 mg PO DAILY 09/01/22 02/03/23 iron) tablet (Feosol) hydromorphone 2 mg tablet 1 - 2 mg PO BID PRN pain 09/01/22 02/03/23 metoprolol tartrate 25 mg tablet 25 mg PO BID 09/01/22 02/03/23 morphine 30 mg tablet,extended 30 mg PO BID chronic pain 09/01/22 02/03/23 release naloxone 4 mg/actuation nasal spray 4 mg intranasal Q3M PRN opioid 09/01/22 02/03/23 overdose omeprazole 20 mg capsule,delayed 20 mg PO BID 09/01/22 02/03/23 release potassium chloride 10 mEq 20 meq PO DAILY 09/01/22 02/03/23 capsule,extended release pregabalin 25 mg capsule 25 mg PO BID 09/01/22 02/03/23 ropinirole 2 mg tablet 2 mg PO BID 09/01/22 02/03/23 rosuvastatin 10 mg tablet 10 mg PO HS 09/01/22 02/03/23 torsemide 20 mg tablet 40 mg PO BID 09/01/22 02/03/23 Previous Rx's Medication Instructions Recorded Lactobacillus acidophilus 0.5 mg 2 tab PO TIDWM 30 days #60 tabs 10/17/22 (100 million cell) tablet Allergies Allergy/AdvReac Type Severity Reaction Status Date / Time atorvastatin Allergy Unknown Verified 09/03/22 11:20 fentanyl Allergy Unknown Verified 09/03/22 11:20 gabapentin Allergy Unknown Verified 09/03/22 11:20 metoclopramide [From Reglan] Allergy Unknown Verified 09/03/22 11:20 Review of Systems Status of ROS: Reports: 10 or more systems reviewed and unremarkable except as noted in History and below Const: Denies: fever, chills or fatigue Eyes: Denies: change in vision ENMT: Reports: neck pain and other (Severe thirst); Denies: throat pain, difficulty swallowing, hoarseness or mouth pain Cardio: Reports: chest pain and lightheadedness; Denies: swelling of feet/ankles or shortness of breath with exertion Resp: Reports: cough (Very mild); Denies: shortness of breath or wheezing GI: Denies: abdominal pain, nausea, vomiting, diarrhea or difficulty swallowing : Denies: painful urination Musculo: Reports: back pain, neck pain, extremity pain, extremity swelling, joint pain and muscle weakness Integ/Breast: Denies: rash Neuro: Reports: weakness in extremities and dizziness; Denies: headache or numbness in extremities Endo: Denies: fatigue Allergy/Immuno: Denies: wheezing PFSH [facility] Medical History (Updated 02/03/23 @ 16:16 by Haley Colmenares MD) Acquired pes planus of both feet ?M21.41 - Flat foot [pes planus] (acquired), right foot (ICD-10) ?M21.42 - Flat foot [pes planus] (acquired), left foot (ICD-10) Age-related physical debility ?R54 - Age-related physical debility (ICD-10) Gait instability ?R26.81 - Unsteadiness on feet (ICD-10) Hearing difficulty of both ears ?H91.93 - Unspecified hearing loss, bilateral (ICD-10) Chronic hypoxemic respiratory failure ?J96.11 - Chronic respiratory failure with hypoxia (ICD-10) Chronic venous insufficiency of lower extremity ?I87.2 - Venous insufficiency (chronic) (peripheral) (ICD-10) Atrial fibrillation ?I48.91 - Unspecified atrial fibrillation (ICD-10) Hyperlipidemia ?E78.5 - Hyperlipidemia, unspecified (ICD-10) Spinal stenosis ?M48.00 - Spinal stenosis, site unspecified (ICD-10) GERD (gastroesophageal reflux disease) ?K21.9 - Gastro-esophageal reflux disease without esophagitis (ICD-10) Essential (primary) hypertension ?I10 - Essential (primary) hypertension (ICD-10) Non-insulin dependent diabetes mellitus ORIANA (obstructive sleep apnea) ?G47.33 - Obstructive sleep apnea (adult) (pediatric) (ICD-10) CKD (chronic kidney disease) ?N18.9 - Chronic kidney disease, unspecified (ICD-10) Chronic pain ?G89.29 - Other chronic pain (ICD-10) Surgical History (Updated 10/15/22 @ 16:38 by Odette Castillo MD) History of hip replacement ?Z96.649 - Presence of unspecified artificial hip joint (ICD-10) Hx of right hemicolectomy ?Z90.49 - Acquired absence of other specified parts of digestive tract (ICD- 10) H/O umbilical hernia repair ?Z98.890 - Other specified postprocedural states (ICD-10) ?Z87.19 - Personal history of other diseases of the digestive system (ICD-10) S/P knee replacement ?Z96.659 - Presence of unspecified artificial knee joint (ICD-10) Social History (Updated 10/15/22 @ 19:38 by Odette Castillo MD) Narrative: Lives with in [place], 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 Former smoker, quit remotely. Rare alcohol use. Daily narcotic use secondary to chronic pain. Son Douglas would be medical decision maker if needed. Requests full code status, does not desire long-term intubation. Highest level of school completed/degree received: some college, no degree Smoking Status: Former smoker Do you use any of these nicotine containing products: None Second hand tobacco smoke exposure: No How often do you have a drink containing alcohol: monthly or less How many standard drinks containing alcohol do you have on a typical day: 1 or 2 AUDIT-C Alcohol total score: 1 Non-prescribed substance use: denies use Caffeine: Yes service: No Exam Narrative: Exam Narrative: Jacqueline is sleeping when I 1st arrived in her room. She does awake easily to touch. She is extremely hard of hearing. She is with appropriate speech and able to answer questions but I have to write them down in large print on the clipboard. Airway is open and breathing is easy. Circulation no evidence of bleeding. GCS is 14, 1 off for sleeping but awakens to stimulation. EOM is full pupils are equal round reactive. Head is with multiple bruises in various stages of healing. Face symmetrical. I am unable to palpate cervical spine given the blanket that is being used for mobilization. Trachea is midline. Heart with regular rate and rhythm lungs are clear. Abdomen soft nontender. Lower extremities are with bruising around the left knee and some edema. She has some mild erythema of the lower shins consistent with venous stasis. No obvious deformities. She is able to move all extremities. Back exam shows her to be very kyphotic. Tenderness noted throughout. Const: Vital Signs, click to edit/add: Vital Signs - 24 hr 02/03/23 13:03 02/03/23 14:36 02/03/23 14:40 Temperature 97.2 F L Pulse Rate 86 85 Pulse Rate [Pulse Oximeter] 85 Respiratory Rate 15 Blood Pressure 197/104 H Blood Pressure [Ri ght Upper Arm] 176/85 H Pulse Oximetry 95 91 94 Oxygen Delivery Me thod Room Air 02/03/23 14:41 02/03/23 14:42 02/03/23 15:00 Temperature Pulse Rate 79 82 89 Pulse Rate [Pulse Oximeter] Respiratory Rate Blood Pressure 201/114 H Blood Pressure [Ri ght Upper Arm] Pulse Oximetry 91 92 95 Oxygen Delivery Me thod 02/03/23 15:05 02/03/23 15:20 02/03/23 15:22 Temperature Pulse Rate 92 92 90 Pulse Rate [Pulse Oximeter] Respiratory Rate Blood Pressure 153/143 H 145/110 H Blood Pressure [Ri ght Upper Arm] Pulse Oximetry 96 91 95 Oxygen Delivery Me thod 02/03/23 15:40 02/03/23 15:42 02/03/23 15:43 Temperature Pulse Rate 88 86 89 Pulse Rate [Pulse Oximeter] Respiratory Rate Blood Pressure 117/57 L Blood Pressure [Ri ght Upper Arm] Pulse Oximetry 86 L 89 90 Oxygen Delivery Me thod 02/03/23 16:00 02/03/23 16:01 02/03/23 16:20 Temperature Pulse Rate 86 85 87 Pulse Rate [Pulse Oximeter] Respiratory Rate Blood Pressure 108/65 Blood Pressure [Ri ght Upper Arm] Pulse Oximetry 91 Oxygen Delivery Me thod 02/03/23 16:21 02/03/23 16:40 02/03/23 16:42 Temperature Pulse Rate 84 86 Pulse Rate [Pulse Oximeter] Respiratory Rate Blood Pressure 109/62 136/64 Blood Pressure [Ri ght Upper Arm] Pulse Oximetry 93 Oxygen Delivery Me thod Documenting provider has reviewed patient's vital signs: yes Course Vital Signs Vital signs: Initial Vital Signs Temperature 97.2 F L 02/03/23 13:03 Temperature Source Temporal Artery Scan 02/03/23 13:03 Pulse Rate 85 02/03/23 13:03 Respiratory Rate 15 02/03/23 13:03 Blood Pressure 176/85 H 02/03/23 13:03 Blood Pressure Mean 115 H 02/03/23 13:03 Pulse Oximetry 95 02/03/23 13:03 Oxygen Delivery Method Room Air 02/03/23 13:03 Vital Signs Temperature 97.2 F L 02/03/23 13:03 Pulse Rate 85 02/03/23 13:03 Respiratory Rate 15 02/03/23 13:03 Blood Pressure 176/85 H 02/03/23 13:03 Pulse Oximetry 95 02/03/23 13:03 Oxygen Delivery Method Room Air 02/03/23 13:03 Temperature 97.2 F L 02/03/23 13:03 Pulse Rate 86 02/03/23 16:40 Respiratory Rate 15 02/03/23 13:03 Blood Pressure 136/64 02/03/23 16:42 Pulse Oximetry 93 02/03/23 16:21 Oxygen Delivery Method Room Air 02/03/23 13:03 Medical Decision Making MDM Narrative Medical decision making narrative: 1. Frequent falls-patient fortunately has no evidence of fractures but does describe weakness and frequent falls. Head, cervical spine, thoracic and lumbar CTs are all with significant degenerative change but no evidence of acute frac ture. This also goes for left knee x-ray. At this time lung sounds are clear, white count normal, hemoglobin 11.1, electrolytes within normal limits as are LFTs. CRP slightly elevated at 1.4 and creatinine kinase within normal limits 2. Chest pain-patient has EKG with nonspecific ST changes but a negative troponin. Patient notes that she ?hurts everywhere?. Was unable to ascertain if this is actually anginal type of discomfort or overall pain from her fall. 3. Pain-patient has a history of chronic pain. Here in the emergency room she felt much better after morphine 2 mg and Zofran 4 mg. 4. Disposition-admit at this time given weakness, age and frequent falls. I have spoken with hospitalist who accepts this patient for admission. Will likely need elementary school social worker consult for safety eval at home. At this time we do not have urinalysis back. White count is normal. CRP minimally elevated at 1.4. I do not yet have reason for patient's fall. Admittedly, history has been hard to obtain given patient's inability to hear me talk. Medical Records Medical records reviewed: Yes I reviewed the patient's medical records Lab Data Lab results reviewed: Yes I reviewed the patient's lab results Labs: Lab Results 02/03/23 02/03/23 02/03/23 Range/Units 13:45 13:48 16:50 WBC 5.50 (4.50-11.00) K/uL RBC 3.29 L (4.00-5.20) m/uL Hgb 11.1 L (12.0-16.0) gm/dL Hct 34.4 (33.0-51.0) % MCV 105 H (80-100) fL MCH 34 (26-34) pg MCHC 32 (32-36) gm/dL RDW Coeff of Josh 14.0 (11.5-15.5) % Plt Count 214 (140-440) K/uL Neut % (Auto) 82.9 H (42.0-72.0) % Lymph % (Auto) 9.8 L (20-44) % [place] % (Auto) 6.5 (0.0-11.0) % Eos % (Auto) 0.4 (0.0-7.0) % Baso % (Auto) 0.4 (0.0-3.0) % Neut # (Auto) 4.60 (1.7-7.0) K/uL Lymph # (Auto) 0.50 L (0.90-2.90) K/uL [place] # (Auto) 0.40 (0.00-0.90) K/UL Eos # (Auto) 0.02 (0.00-0.50) K/uL Baso # (Auto) 0.02 (0.00-0.30) K/uL Sodium 139 (135-149) mmol/L Potassium 3.7 (3.6-5.1) mmol/L Chloride 101 (96-114) mmol/L Carbon Dioxide 31 (20-32) mmol/L BUN 13 (7-30) mg/dL Creatinine 0.5 (0.5-1.5) mg/dL Estimated Creat Clear 29.54 Estimated GFR 92 ml/min Glucose 82 (60-115) mg/dL Calcium 8.6 (8.4-10.6) mg/dL Total Bilirubin 0.9 (0.1-1.5) mg/dL AST 29 (12-35) U/L ALT 18 (4-35) U/L Alkaline Phosphatase 81 (40-150) U/L Total Creatine Kinase 116 (41-117) U/L C-Reactive Protein 1.4 H (0.5-1.0) mg/dL Total Protein 6.2 (6.0-8.3) g/dL Albumin 3.6 (3.3-5.0) g/dL Urine Color Yellow (Yellow) Urine Appearance Clear (Clear) Urine pH 7.5 (5.0-8.5) Ur Specific [place] 1.015 (1.000-1.030) Urine Protein Negative (Negative) Urine Glucose (UA) Negative (Negative) Urine Ketones 2+ A (Negative) Urine Blood Negative (Negative) Urine Nitrite Negative (Negative) Urine Bilirubin Negative (Negative) Urine Urobilinogen 0.2 (0.2-1.0) Ur Leukocyte Esterase Negative (Negative) Urine RBC 0-2 (0-2) Urine WBC 2-5 (0-5) Ur Squamous Epith Cells None (None-Few) Urine Bacteria None (None) POC Troponin I 0.01 (0.01-0.04) ng/ml Imaging Data CT scan - head: Attestation: I have reviewed the pertinent imaging results. Radiologist's impression: Brain parenchyma and extra-axial spaces: There are mild nonspecific low attenuation white matter changes consistent with chronic microvascular disease. Otto-white differentiation is preserved. No sign of mass, hemorrhage, or midline shift.? Skull base and calvarium: The visualized paranasal sinuses and mastoid air cells demonstrate no acute or significant findings.? The visualized orbits are grossly unremarkable.? No skull fractures.? ? ? IMPRESSION: No acute findings. Cervical spine CT: Attestation: I have reviewed the pertinent imaging results. My impression: Multilevel degenerative change. Radiologist's impression: Vertebrae: Alignment is normal.? There are no fractures or suspicious bony lesions.? Discs and facet joints: There are moderate to severe diffuse degenerative changes in the disc spaces and facet joints. Extraspinal findings: Paraspinous soft tissues are unremarkable. Mild scarring at the lung apices, unchanged. IMPRESSION: 1. No sign of acute injury. 2. Multilevel degenerative spondylosis. Lumbar CT: Attestation: I have reviewed the pertinent imaging results. My impression: Severe scoliosis with multilevel degenerative disease. Radiologist's impression: ertebrae: Severe levo scoliotic curvature centered at T12-L1. Posterior spinal and within normal limits. There are no fractures or suspicious bony lesions.? Discs and facet joints: Severe multilevel degenerative disc disease and facet arthrosis. Extraspinal findings: There is moderate atrophy and fatty infiltration of the paraspinal musculature. Aortoiliac atherosclerosis is present. IMPRESSION: 1. No acute fracture of lumbar spine. 2. Scoliosis and severe degenerative spondylosis. Thoracic CT: Attestation: I have reviewed the pertinent imaging results. My impression: Multilevel degenerative change. Radiologist's impression: Vertebrae: Mild convex rightward curvature of the thoracic spine centered at T8. Mild accentuation of the normal thoracic kyphosis. Mild anterior height loss (approximately 20 percent) at T6 and T7 is chronic in appearance. No acute appearing fracture is detected. The remaining thoracic vertebral body heights are preserved.. Discs and facet joints: Multilevel moderate to severe disc space narrowing. Mild lower thoracic facet arthrosis. Extraspinal findings: Prevertebral soft tissues, visualized airway, and visualized lungs are unremarkable.? IMPRESSION: 1. Mild chronic appearing anterior height loss at T6 and T7. No acute appearing thoracic spine fracture or subluxation. 2. 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 Left knee x-ray: Attestation: I have reviewed the pertinent imaging results. My impression: No acute finding Radiologist's impression: There is no displaced fracture or dislocation. There is prior total knee arthroplasty without evidence of hardware failure There is mild joint effusion. Impression: Total knee arthroplasty without evidence of hardware failure or displaced fracture. Mild suprapatellar joint effusion. ECG Data Attestation: I personally reviewed and interpreted this ECG as follows: Interpretation: EKG 1. By my read shows what I believed to be atrial fibrillation at a rate of 78. Nonspecific T-wave abnormality. QT corrected is at 483. Discharge Plan Discharge Clinical Impression: Pain, Falls frequently, Weakness Patient Disposition: Admitted As Inpatient Condition: Improved
--- NOTE | 2023-02-03 13:26 | CRLHL7_ITS ---
For Patients: As a result of the Cures Act, medical imaging exams and procedure reports are released immediately into your electronic medical record. You may view this report before your referring provider. If you have questions, please contact your health care provider. Indication: Fall Comparison: None available. Technique: Standing AP, lateral, and sunrise views of the left knee were obtained Findings: There is no displaced fracture or dislocation. There is prior total knee arthroplasty without evidence of hardware failure There is mild joint effusion. Impression: Total knee arthroplasty without evidence of hardware failure or displaced fracture. Mild suprapatellar joint effusion. Dictated by Rene Pires MD @ 02/03/2023 3:35:29 PM (Electronically Signed)
--- NOTE | 2023-02-03 13:26 | CRLHL7_ITS ---
For Patients: As a result of the Century Cures Act, medical imaging exams and procedure reports are released immediately into your electronic medical record. You may view this report before your referring provider. If you have questions, please contact your health care provider. INDICATION: Trauma. TECHNIQUE: CT cervical spine without contrast. COMPARISON: None. FINDINGS: Vertebrae: Alignment is normal. There are no fractures or suspicious bony lesions. Discs and facet joints: There are moderate to severe diffuse degenerative changes in the disc spaces and facet joints. Extraspinal findings: Paraspinous soft tissues are unremarkable. Mild scarring at the lung apices, unchanged. IMPRESSION: 1. No sign of acute injury. 2. Multilevel degenerative spondylosis. Please note that all CT scans at this facility use dose modulation, iterative reconstruction, and/or weight-based dosing when appropriate to reduce radiation dose to as low as reasonably achievable. Dictated by Ketan Soria MD @ 02/03/2023 3:21:11 PM (Electronically Signed)
--- NOTE | 2023-02-03 13:26 | CRLHL7_ITS ---
For Patients: As a result of the Century Cures Act, medical imaging exams and procedure reports are released immediately into your electronic medical record. You may view this report before your referring provider. If you have questions, please contact your health care provider. INDICATION: Fall. TECHNIQUE: Head CT without contrast. COMPARISON: None. FINDINGS: CSF spaces: Within normal limits for age. Brain parenchyma and extra-axial spaces: There are mild nonspecific low attenuation white matter changes consistent with chronic microvascular disease. Otto-white differentiation is preserved. No sign of mass, hemorrhage, or midline shift. Skull base and calvarium: The visualized paranasal sinuses and mastoid air cells demonstrate no acute or significant findings. The visualized orbits are grossly unremarkable. No skull fractures. IMPRESSION: No acute findings. Please note that all CT scans at this facility use dose modulation, iterative reconstruction, and/or weight-based dosing when appropriate to reduce radiation dose to as low as reasonably achievable. Dictated by Ketan Soria MD @ 02/03/2023 3:17:38 PM (Electronically Signed)
--- NOTE | 2023-02-03 13:26 | CRLHL7_ITS ---
For Patients: As a result of the Century Cures Act, medical imaging exams and procedure reports are released immediately into your electronic medical record. You may view this report before your referring provider. If you have questions, please contact your health care provider. INDICATION: Trauma, fall. TECHNIQUE: CT thoracic spine without contrast. COMPARISON: None. FINDINGS: Vertebrae: Mild convex rightward curvature of the thoracic spine centered at T8. Mild accentuation of the normal thoracic kyphosis. Mild anterior height loss (approximately 20 percent) at T6 and T7 is chronic in appearance. No acute appearing fracture is detected. The remaining thoracic vertebral body heights are preserved.. Discs and facet joints: Multilevel moderate to severe disc space narrowing. Mild lower thoracic facet arthrosis. Extraspinal findings: Prevertebral soft tissues, visualized airway, and visualized lungs are unremarkable. IMPRESSION: 1. Mild chronic appearing anterior height loss at T6 and T7. No acute appearing thoracic spine fracture or subluxation. 2. 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 Please note that all CT scans at this facility use dose modulation, iterative reconstruction, and/or weight-based dosing when appropriate to reduce radiation dose to as low as reasonably achievable. Dictated by Ketan Soria MD @ 02/03/2023 3:26:46 PM (Electronically Signed)
--- NOTE | 2023-02-03 13:26 | CRLHL7_ITS ---
For Patients: As a result of the Century Cures Act, medical imaging exams and procedure reports are released immediately into your electronic medical record. You may view this report before your referring provider. If you have questions, please contact your health care provider. INDICATION: Trauma. TECHNIQUE: CT lumbar spine without contrast. COMPARISON: 08/29/2018. FINDINGS: Vertebrae: Severe levo scoliotic curvature centered at T12-L1. Posterior spinal and within normal limits. There are no fractures or suspicious bony lesions. Discs and facet joints: Severe multilevel degenerative disc disease and facet arthrosis. Extraspinal findings: There is moderate atrophy and fatty infiltration of the paraspinal musculature. Aortoiliac atherosclerosis is present. IMPRESSION: 1. No acute fracture of lumbar spine. 2. Scoliosis and severe degenerative spondylosis. Please note that all CT scans at this facility use dose modulation, iterative reconstruction, and/or weight-based dosing when appropriate to reduce radiation dose to as low as reasonably achievable. Dictated by Ketan Soria MD @ 02/03/2023 3:31:01 PM (Electronically Signed)
[2023-02-03 14:01] LABS: Basophils Absolute Auto 0.02 K/uL (0.00-0.30); Basophils Percent Auto 0.4 % (0.0-3.0); Eosinophils Absolute Auto 0.02 K/uL (0.00-0.50); Eosinophils Percent Auto 0.4 % (0.0-7.0); Hematocrit 34.4 % (33.0-51.0); Hemoglobin* 11.1 gm/dL (12.0-16.0); Lymphocytes Percent Auto 9.8 % (20-44); Mean Corpuscular HGB Conc 32 gm/dL (32-36); Mean Corpuscular Hemoglobin 34 pg (26-34); Mean Corpuscular Volume 105 fL (80-100); Monocytes Percent Auto 6.5 % (0.0-11.0); Neutrophils Percent Auto 82.9 % (42.0-72.0); Platelet Count* 214 K/uL (140-440); Red Blood Count 3.29 m/uL (4.00-5.20)
[2023-02-03 14:04] LABS: Slide Review Reflex No
[2023-02-03 14:15] LABS: Albumin* 3.6 g/dL (3.3-5.0); Chloride* 101 mmol/L (96-114); Sodium* 139 mmol/L (135-149)
[2023-02-03 14:16] LABS: Potassium* 3.7 mmol/L (3.6-5.1)
[2023-02-03 14:18] LABS: Alkaline Phosphatase* 81 U/L (40-150); Aspartate Amino Transferase* 29 U/L (12-35); Bilirubin Total* 0.9 mg/dL (0.1-1.5); Carbon Dioxide* 31 mmol/L (20-32); Creatinine* 0.5 mg/dL (0.5-1.5); Est. Creatinine Clearance* 29.54; Estimated Glomerular Filt Rate 92 ml/min; Total Protein* 6.2 g/dL (6.0-8.3)
[2023-02-03 14:19] LABS: Alanine Aminotransferase* 18 U/L (4-35); Blood Urea Nitrogen* 13 mg/dL (7-30); Calcium* 8.6 mg/dL (8.4-10.6); Glucose* 82 mg/dL (60-115)
[2023-02-03 14:21] LABS: C Reactive Protein* 1.4 mg/dL (0.5-1.0)
[2023-02-03] MEDS: 0.9 % SODIUM CHLORIDE 1000 ml 1,000 ML IV (14:30)
[2023-02-03 14:37] LABS: Troponin, Point-of-Care* 0.01 ng/ml (0.01-0.04)
[2023-02-03] MEDS: ONDANSETRON 2 MG/ML inj 4 MG IVP (15:32)
[2023-02-03] MEDS: MORPHINE 2 MG/ML inj IVP (15:33)
[2023-02-03 15:37] LABS: Creatine Kinase* 116 U/L (41-117)
--- NOTE | 2023-02-03 16:07 | ED.NURSE ---
Pt reports whole body pain. Morphine 2mg IV given as ordered. Pt reports improvement in pain, but that it is still present. Bruising noted to right hip, left eye, and bilateral forearms and legs. Dr. Colmenares aware of injuries. Provider notified of continued pain.
--- NOTE | 2023-02-03 16:30 | PM.IMHP1 ---
Hospitalist- H&P: [place] History of Present Illness Date Seen: 02/03/23 Chief complaint: Fall Narrative: Jacqueline Greene is a 87 year old female with past medical history of atrial fibrillation (on aspirin), chronic pain syndrome, CKD, HTN, GERD, HLD, T2Dm (non insulin dependent) presenting from home for evaluation of fall. The patient's hearing aids are not working; her communication is limited due to hearing issues. SHe lives alone. She has had multiple reported falls at home. She was brought to ED by EMS where CT head/cervical/thoracic/lumbar spine showed no acute findings. UA, CBC, BMP unremarkable. EKG showed Afib; not on anticoagulation. She was subsequently admitted for further evaluation and anticipated NH placement ct head No acute findings. Imaging CT Spine 1. Mild chronic appearing anterior height loss at T6 and T7. No acute appearing thoracic spine fracture or subluxation. 2. 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 IMPRESSION: 1. No acute fracture of lumbar spine. 2. Scoliosis and severe degenerative spondylosis. xray knee Total knee arthroplasty without evidence of hardware failure or displaced fracture. Mild suprapatellar joint effusion. ct c spine IMPRESSION: 1. No sign of acute injury. 2. Multilevel degenerative spondylosis. EKG Afib Review of Systems Status of ROS: Reports: unobtainable due to medical condition [facility] Medical History (Updated 02/03/23 @ 16:16 by Haley Colmenares MD) Acquired pes planus of both feet ?M21.41 - Flat foot [pes planus] (acquired), right foot (ICD-10) ?M21.42 - Flat foot [pes planus] (acquired), left foot (ICD-10) Age-related physical debility ?R54 - Age-related physical debility (ICD-10) Gait instability ?R26.81 - Unsteadiness on feet (ICD-10) Hearing difficulty of both ears ?H91.93 - Unspecified hearing loss, bilateral (ICD-10) Chronic hypoxemic respiratory failure ?J96.11 - Chronic respiratory failure with hypoxia (ICD-10) Chronic venous insufficiency of lower extremity ?I87.2 - Venous insufficiency (chronic) (peripheral) (ICD-10) Atrial fibrillation ?I48.91 - Unspecified atrial fibrillation (ICD-10) Hyperlipidemia ?E78.5 - Hyperlipidemia, unspecified (ICD-10) Spinal stenosis ?M48.00 - Spinal stenosis, site unspecified (ICD-10) GERD (gastroesophageal reflux disease) ?K21.9 - Gastro-esophageal reflux disease without esophagitis (ICD-10) Essential (primary) hypertension ?I10 - Essential (primary) hypertension (ICD-10) Non-insulin dependent diabetes mellitus ORIANA (obstructive sleep apnea) ?G47.33 - Obstructive sleep apnea (adult) (pediatric) (ICD-10) CKD (chronic kidney disease) ?N18.9 - Chronic kidney disease, unspecified (ICD-10) Chronic pain ?G89.29 - Other chronic pain (ICD-10) Surgical History (Updated 10/15/22 @ 16:38 by Odette Castillo MD) History of hip replacement ?Z96.649 - Presence of unspecified artificial hip joint (ICD-10) Hx of right hemicolectomy ?Z90.49 - Acquired absence of other specified parts of digestive tract (ICD-10) H/O umbilical hernia repair ?Z98.890 - Other specified postprocedural states (ICD-10) ?Z87.19 - Personal history of other diseases of the digestive system (ICD-10) S/P knee replacement ?Z96.659 - Presence of unspecified artificial knee joint (ICD-10) Social History (Updated 10/15/22 @ 19:38 by Odette Castillo MD) Narrative: Lives with in [place], 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 Former smoker, quit remotely. Rare alcohol use. Daily narcotic use secondary to chronic pain. Son Douglas would be medical decision maker if needed. Requests full code status, does not desire long-term intubation. What is your current living situation: I have a place to live at present, but am concerned about the future Problems where you live: unable to answer Problems where you live details: unknown In the past 12 months, utilities in danger of being shut off: no In the past 12 mos, have been you worried that your food would run out before you had money to buy more?: unable to answer In the past 12 mos, the food you bought just didn't last and you didn't have money to buy more?: unable to answer Highest level of school completed/degree received: Associate degree: occupational, technical, vocational program Smoking Status: Former smoker Do you use any of these nicotine containing products: None Second hand tobacco smoke exposure: No How often do you have a drink containing alcohol: monthly or less How many standard drinks containing alcohol do you have on a typical day: 1 or 2 AUDIT-C Alcohol total score: 1 Non-prescribed substance use: denies use Caffeine: Yes How often does anyone, including family, friends and others, physically hurt you: How often does anyone, including family, friends and others, insult or talk down to you: How often does anyone, including family, friends and others, threaten you with harm: How often does anyone, including family, friends and others, scream or curse at you: service: No Meds Home Medications and Allergies Home Medications Medication Instructions Recorded Confirmed Type acetaminophen 1,000 mg PO BID 09/01/22 02/03/23 History alendronate 70 mg tablet 70 mg PO QWEEK 09/01/22 02/03/23 History allopurinol 300 mg tablet 300 mg PO DAILY 09/01/22 02/03/23 History calcium carbonate 500 mg calcium 500 mg PO BID 09/01/22 02/03/23 History (1,250 mg) chewable tablet duloxetine 60 mg capsule,delayed 60 mg PO DAILY 09/01/22 02/03/23 History release ferrous sulfate 325 mg (65 mg 325 mg PO DAILY 09/01/22 02/03/23 History iron) tablet (Feosol) hydromorphone 2 mg tablet 1 - 2 mg PO BID PRN pain 09/01/22 02/03/23 History metoprolol tartrate 25 mg tablet 25 mg PO BID 09/01/22 02/03/23 History morphine 30 mg tablet,extended 30 mg PO BID chronic pain 09/01/22 02/03/23 History release naloxone 4 mg/actuation nasal spray 4 mg intranasal Q3M PRN opioid 09/01/22 02/03/23 History overdose omeprazole 20 mg capsule,delayed 20 mg PO BID 09/01/22 02/03/23 History release potassium chloride 10 mEq 20 meq PO DAILY 09/01/22 02/03/23 History capsule,extended release pregabalin 25 mg capsule 25 mg PO BID 09/01/22 02/03/23 History ropinirole 2 mg tablet 2 mg PO BID 09/01/22 02/03/23 History rosuvastatin 10 mg tablet 10 mg PO HS 09/01/22 02/03/23 History torsemide 20 mg tablet 40 mg PO BID 09/01/22 02/03/23 History Allergies Allergy/AdvReac Type Severity Reaction Status Date / Time atorvastatin Allergy Unknown Verified 09/03/22 11:20 fentanyl Allergy Unknown Verified 09/03/22 11:20 gabapentin Allergy Unknown Verified 09/03/22 11:20 metoclopramide [From Reglan] Allergy Unknown Verified 09/03/22 11:20 Exam Narrative: Exam Narrative: Gen: no acute distress/NENANA HEENT: NCAT EOMI mmm Neck: Supple CV: IRIR normal s1 s2 Lungs: CTAB Abd: Soft,nt, nd Neuro: Alert, NENANA; follows commands Psych: appropriate affect MSK: age appropriate muscle mass Skin; venous stasis changes lower extremities Const: Vital Signs, click to edit/add: Vital Signs - 24 hr 02/03/23 13:03 02/03/23 14:36 02/03/23 14:40 Temperature 97.2 F L Pulse Rate 86 85 Pulse Rate [Pulse Oximeter] 85 Respiratory Rate 15 Blood Pressure 197/104 H Blood Pressure [Ri ght Upper Arm] 176/85 H Pulse Oximetry 95 91 94 Oxygen Delivery Me od Room Air 02/03/23 14:41 02/03/23 14:42 02/03/23 15:00 Temperature Pulse Rate 79 82 89 Pulse Rate [Pulse Oximeter] Respiratory Rate Blood Pressure 201/114 H Blood Pressure [Ri ght Upper Arm] Pulse Oximetry 91 92 95 Oxygen Delivery [facility] 02/03/23 15:05 02/03/23 15:20 02/03/23 15:22 Temperature Pulse Rate 92 92 90 Pulse Rate [Pulse Oximeter] Respiratory Rate Blood Pressure 153/143 H 145/110 H Blood Pressure [Ri ght Upper Arm] Pulse Oximetry 96 91 [facility] 02/03/23 15:40 02/03/23 15:42 Temperature Pulse Rate 88 86 Pulse Rate [Pulse Oximeter] Respiratory Rate Blood Pressure 117/57 L Blood Pressure [Ri ght Upper Arm] Pulse Oximetry 86 L 89 [facility] - H&P: Result Labs Labs: Short CBC 02/03/23 Range/Units 13:48 WBC 5.50 (4.50-11.00) K/uL Hgb 11.1 L (12.0-16.0) gm/dL Hct 34.4 (33.0-51.0) % Plt Count 214 (140-440) K/uL BMP 02/03/23 13:48 Sodium 139 Potassium 3.7 Chloride 101 Carbon Dioxide 31 BUN 13 Creatinine 0.5 Glucose 82 Calcium 8.6 Cardiac Enzymes 02/03/23 Range/Units 13:48 Total Creatine Kinase 116 (41-117) U/L Liver Function 02/03/23 Range/Units 13:48 Total Bilirubin 0.9 (0.1-1.5) mg/dL AST 29 (12-35) U/L ALT 18 (4-35) U/L Alkaline Phosphatase 81 (40-150) U/L Albumin 3.6 (3.3-5.0) g/dL Assessment and Plan Assessment and plan (1) Weakness: Status: Acute (2) Falls frequently: Status: Acute (3) Gait instability: Status: Acute (4) Hearing difficulty of both ears: Status: Acute (5) Chronic hypoxemic respiratory failure: Problem comment: Utilizes oxygen supplementation at home only periodically when she thinks she might need it. Status: Acute (6) Chronic venous insufficiency of lower extremity: Problem comment: Signs: telangiectasias, reticular veins, small and large vericose veins, edema, hemosideran deposition hyperpigmentation. Status: Acute (7) ORIANA (obstructive sleep apnea): Problem comment: - not on CPAP - continue prn supplemental oxygen overnight Status: Acute (8) Non-insulin dependent diabetes mellitus: Problem comment: - last A1c as an outpatient 6.0 (08/2023) Status: Acute (9) Chronic pain: Status: Acute Plan Assessment: Jacqueline Greene is a 87 year old female with past medical history of atrial fibrillation (on aspirin), chronic pain syndrome, CKD, HTN, GERD, HLD, T2Dm (non insulin dependent) presenting from home for evaluation of fall. The patient's hearing aids are not working; her communication is limited due to hearing issues. SHe lives alone. She has had multiple reported falls at home. She was brought to ED by EMS where CT head/cervical/thoracic/lumbar spine showed no acute findings. UA, CBC, BMP unremarkable. EKG showed Afib; not on anticoagulation. She was subsequently admitted for further evaluation and anticipated NH placement 1. Recurrent Falls 2. atrial fibrillation (on aspirin) 3. chronic pain syndrome 4. CKD 5. HTN 6. GERD 7. HLD 8. T2Dm (non insulin dependent) Plan -admit to obs -PT, OT, SW consult -likely will need NH placement -fall precautions Code-DNR
[2023-02-03 17:04] LABS: Appearance Urine Clear (Clear); Bilirubin Urine Negative (Negative); Blood Urine Negative (Negative); Color Urine Yellow (Yellow); Glucose Urine Negative (Negative); Ketones Urine 2+ (Negative); Leukocyte Esterase Urine Negative (Negative); Nitrite Urine Negative (Negative); Protein Urine Negative (Negative); Specific Gravity Urine 1.015 (1.000-1.030); Urobilinogen Urine 0.2 (0.2-1.0); pH Urine 7.5 (5.0-8.5)
[2023-02-03 17:34] LABS: RBC Urine 0-2 (0-2)
[2023-02-03] MEDS: TORSEMIDE 20 MG TABLET 40 MG PO (18:28)
[2023-02-03] MEDS: MORPHINE 30 MG TABLET.ER PO (20:20)
[2023-02-03] MEDS: METOPROLOL TARTRATE 25 MG TABLET PO (20:21)
[2023-02-03] MEDS: OMEPRAZOLE 20 MG CAPSULE DR PO (20:21)
[2023-02-03] MEDS: SODIUM CHLORIDE 0.9 % (FLUSH) 10 ML SYRINGE 5 ML IVF (20:21)
[2023-02-03] MEDS: ROPINIROLE HCL 1 MG TABLET 2 MG PO (20:21)
[2023-02-03] MEDS: ROSUVASTATIN CALCIUM 10 MG TABLET PO (20:21)
[2023-02-04] VITALS (7 sets, daily range): BP systolic 102–135; BP diastolic 54–81; PULSE 54–70; RESP 16–20; TEMP 36.4–37; O2SAT 91–98
--- NOTE | 2023-02-04 06:08 | PC.NURSE ---
Pleasant and cooperative 87 year old female, alert and oriented x 4. Patient denies any pain at rest but did report generalized muscle pain upon ambulation, declined any pain medication as it is tolerable. Lung sounds clear but diminished in bilateral bases, denies any shortness of breath or cough. Assisted patient to bathroom x 1, transfers with stand by assist and ambulates with walker and gait belt. Bowel sounds active x quadrants, abdomen soft and non tender. Bruising noted to face, bilateral upper arms, back and bilateral legs. Skin tear to left forearm that is covered with steri strip. Patient slept well.
[2023-02-04] MEDS: MORPHINE 30 MG TABLET.ER PO ×2 (09:47→20:37)
[2023-02-04] MEDS: METOPROLOL TARTRATE 25 MG TABLET PO ×2 (09:47→20:37)
[2023-02-04] MEDS: OMEPRAZOLE 20 MG CAPSULE DR PO ×2 (09:47→20:37)
[2023-02-04] MEDS: ROPINIROLE HCL 1 MG TABLET 2 MG PO ×2 (09:47→20:36)
[2023-02-04] MEDS: TORSEMIDE 20 MG TABLET 40 MG PO ×2 (09:48→15:48)
[2023-02-04] MEDS: SODIUM CHLORIDE 0.9 % (FLUSH) 10 ML SYRINGE 5 ML IVF ×2 (09:48→20:44)
[2023-02-04] MEDS: DULOXETINE 30 MG CAPSULE DR 60 MG PO (09:48)
--- NOTE | 2023-02-04 13:38 | P.IMPN_ITS ---
Progress Note: A&P Assessment and plan (1) Weakness: Status: Acute (2) Falls frequently: Status: Acute (3) Age-related physical debility: Status: Acute (4) Hearing difficulty of both ears: Status: Acute (5) Chronic hypoxemic respiratory failure: Problem details: Utilizes oxygen supplementation at home only periodically when she thinks she might need it. Status: Acute (6) Chronic venous insufficiency of lower extremity: Problem details: Signs: telangiectasias, reticular veins, small and large vericose veins, edema, hemosideran deposition hyperpigmentation. Status: Acute (7) ORIANA (obstructive sleep apnea): Problem details: - not on CPAP - continue prn supplemental oxygen overnight Status: Acute (8) Frequent falls: Problem details: - likely multifactorial (cellulitis, PVD, iatrogenic) - PT and OT evaluations initiated Status: Acute (9) Non-insulin dependent diabetes mellitus: Problem details: - last A1c as an outpatient 6.0 (08/2023) Status: Acute (10) Chronic pain: Status: Acute Plan Assessment: Jacqueline Greene is a 87 year old female with past medical history of atrial fibrillation (on aspirin), chronic pain syndrome, CKD, HTN, GERD, HLD, T2Dm (non insulin dependent) presenting from home for evaluation of fall. The patient's hearing aids are not working; her communication is limited due to hearing issues. SHe lives alone. She has had multiple reported falls at home. She was brought to ED by EMS where CT head/cervical/thoracic/lumbar spine showed no acute findings. UA, CBC, BMP unremarkable. EKG showed Afib; not on anticoagulation. She was subsequently admitted for further evaluation and anticipated NH placement 1. Recurrent Falls 2. atrial fibrillation (on aspirin) 3. chronic pain syndrome 4. CKD 5. HTN 6. GERD 7. HLD 8. T2Dm (non insulin dependent) Plan -admit to obs -PT, OT, SW consult -will need NH placement -fall precautions Code-DNR/DNI Subjective Date Seen: 02/04/23 Interval history: patient sleeping this morning no acute events overnight admitted for frequent fall and need for SNF->NH placement Exam Narrative: Exam Narrative: Gen: no acute distress; sleeping HEENT: NCAT EOMI mmm CV: RRR normal s1 s2 Lungs: CTAB Abd: Soft,nt, nd Neuro: sleeping; [place] Const: Vital Signs, click to edit/add: Vital Signs - 24 hr 02/03/23 14:36 02/03/23 14:40 02/03/23 14:41 Temperature Pulse Rate 86 85 79 Pulse Rate [Pulse Oximeter] Respiratory Rate Blood Pressure 197/104 H Blood Pressure [Le ft Arm] Pulse Oximetry 91 94 91 Oxygen Delivery Me thod Oxygen Flow Rate 02/03/23 14:42 02/03/23 15:00 02/03/23 15:05 Temperature Pulse Rate 82 89 92 Pulse Rate [Pulse Oximeter] Respiratory Rate Blood Pressure 201/114 H 153/143 H Blood Pressure [Le ft Arm] Pulse Oximetry 92 95 96 Oxygen Delivery Me thod Oxygen Flow Rate 02/03/23 15:20 02/03/23 15:22 02/03/23 15:40 Temperature Pulse Rate 92 90 88 Pulse Rate [Pulse Oximeter] Respiratory Rate Blood Pressure 145/110 H Blood Pressure [Le ft Arm] Pulse Oximetry 91 95 86 L Oxygen Delivery Me thod Oxygen Flow Rate 02/03/23 15:42 02/03/23 15:43 02/03/23 16:00 Temperature Pulse Rate 86 89 86 Pulse Rate [Pulse Oximeter] Respiratory Rate Blood Pressure 117/57 L Blood Pressure [Le ft Arm] Pulse Oximetry 89 90 Oxygen Delivery Me thod Oxygen Flow Rate 02/03/23 16:01 02/03/23 16:20 02/03/23 16:21 Temperature Pulse Rate 85 87 84 Pulse Rate [Pulse Oximeter] Respiratory Rate Blood Pressure 108/65 109/62 Blood Pressure [Le ft Arm] Pulse Oximetry 91 93 Oxygen Delivery Me thod Oxygen Flow Rate 02/03/23 16:40 02/03/23 16:42 02/03/23 18:47 Temperature 98 F Pulse Rate 86 Pulse Rate [Pulse Oximeter] 91 Respiratory Rate 12 Blood Pressure 136/64 Blood Pressure [Le ft Arm] 111/58 L Pulse Oximetry 91 Oxygen Delivery Me thod Room Air Oxygen Flow Rate 02/03/23 18:47 02/03/23 19:00 02/03/23 23:00 Temperature 99 F 98.6 F Pulse Rate Pulse Rate [Pulse Oximeter] 87 69 Respiratory Rate 14 14 Blood Pressure Blood Pressure [Le ft Arm] 101/63 100/52 L Pulse Oximetry 91 93 90 Oxygen Delivery Me thod Room Air Nasal Cannula Nasal Cannula Oxygen Flow Rate 2 1 02/04/23 03:00 02/04/23 07:30 02/04/23 08:15 Temperature 98.6 F 98.1 F Pulse Rate Pulse Rate [Pulse Oximeter] 68 66 66 Respiratory Rate 20 18 18 Blood Pressure Blood Pressure [Le ft Arm] 108/60 135/67 Pulse Oximetry 93 91 Oxygen Delivery Me thod Nasal Cannula Nasal Cannula Oxygen Flow Rate 1 1 Labs Labs: Laboratory Results - last 24 hr 02/03/23 02/03/23 02/03/23 13:45 13:48 16:50 WBC 5.50 RBC 3.29 L Hgb 11.1 L Hct 34.4 MCV 105 H MCH 34 MCHC 32 RDW Coeff of Josh 14.0 Plt Count 214 Neut % (Auto) 82.9 H Lymph % (Auto) 9.8 L [place] % (Auto) 6.5 Eos % (Auto) 0.4 Baso % (Auto) 0.4 Neut # (Auto) 4.60 Lymph # (Auto) 0.50 L [place] # (Auto) 0.40 Eos # (Auto) 0.02 Baso # (Auto) 0.02 Sodium 139 Potassium 3.7 Chloride 101 Carbon Dioxide 31 BUN 13 Creatinine 0.5 Estimated Creat Clear 29.54 Estimated GFR 92 Glucose 82 Calcium 8.6 Total Bilirubin 0.9 AST 29 ALT 18 Alkaline Phosphatase 81 Total Creatine Kinase 116 C-Reactive Protein 1.4 H Total Protein 6.2 Albumin 3.6 Urine Color Yellow Urine Appearance Clear Urine pH 7.5 Ur Specific [place] 1.015 Urine Protein Negative Urine Glucose (UA) Negative Urine Ketones 2+ A Urine Blood Negative Urine Nitrite Negative Urine Bilirubin Negative Urine Urobilinogen 0.2 Ur Leukocyte Esterase Negative Urine RBC 0-2 Urine WBC 2-5 Ur Squamous Epith Cells None Urine Bacteria None POC Troponin I 0.01
[2023-02-04] MEDS: HYDROmorphone 2 MG TABLET PO (14:12)
[2023-02-04] MEDS: ACETAMINOPHEN 325 MG TABLET PO (15:48)
--- NOTE | 2023-02-04 15:51 | PC.NURSE ---
O2 SATS ON RA 84% AT REST AND AFTER ACTIVITY. APPLIED 2L O2 PER NC AND SATS 93-95%. UP WITH A1, WALKER AND GAIT BELT. PATIENT UNSTEADY. PATIENT REPORTS MULTIPLE FALLS RECENTLY. BRUISING TO ENTIRE BODY IN VARIOUS STAGES OF HEALING. DARK BRUISING TO LEFT CHIN, BILATERAL HIPS AND LEGS AND BACK. SKIN TEARS TO BILATERAL FOREARMS INTACT AND TEST ENG. SCABBED AREA TO RIGHT GARIBAY THAT DID START BLEEDING. COVERED WITH MEPILEX. PATIENT PLEASANT AND COOPERATIVE BUT VERY HARD OF HEARING. ORIENTED TO SELF BUT THOUGHT SHE WAS IN [place]. UNSURE OF DATE OR MONTH. REPORTS DECREASED APPETITE RECENTLY. GENERALIZED CHRONIC PAIN. RECEIVED SCHEDULED MORPHINE THIS AM AND REQUIRED ADDITIONAL DOSE OF PO DILAUDID THIS AFTERNOON FOR BILATERAL HIP PAIN.
--- NOTE | 2023-02-04 16:49 | PC.SOCIAL ---
Discharge planning- met with pt in pt's room to discuss discharge plans. Therapy recommendation is short-term rehab. Pt would like to go to [facility], since pt's is currently residing at [facility]. Informed pt that since she is observation status at hospital she will have to private pay for SNF. Phone call to Shanna Patten in admissions at [facility] ([phone]). There are openings and [facility] will assess. Faxed referral to [phone]. Social work will follow up as necessary.
[2023-02-04] MEDS: ROSUVASTATIN CALCIUM 10 MG TABLET PO (20:38)
[2023-02-04] MEDS: MELATONIN 3 MG TABLET PO (20:51)
--- NOTE | 2023-02-04 22:25 | PC.NURSE ---
End of Shift Summary: Pt pleasant and cooperative throughout shift. Hard of hearing, headphones helpful. Pt ambulatory with gait belt, walker, and stand by assist. Pain reported between 8-5/10, improved with pain medication, cold packs and positioning. Pt takes PO medications with apple sauce. Family at bedside this afternoon.
[2023-02-05 00:11] VITALS: BP 158/95; PULSE 63; RESP 18; TEMP 36.8; O2SAT 94
[2023-02-05 00:12] VITALS: PULSE 63; RESP 18
[2023-02-05 06:00] VITALS: BP 125/74; PULSE 70; RESP 18; TEMP 36.6; O2SAT 94
[2023-02-05] MEDS: HYDROmorphone 2 MG TABLET PO (06:06)
--- NOTE | 2023-02-05 06:54 | PC.NURSE ---
23-07: Pt rested well up acouple times to br tolerated well w/ sba and walker did need help positioning and legs in bed. Pain med given this morning, vss did require o2 2 lpm via nc at rest.
[2023-02-05 07:00] VITALS: BP 102/59; PULSE 61; RESP 18; TEMP 36.6; O2SAT 98
[2023-02-05] MEDS: ACETAMINOPHEN 325 MG TABLET PO (08:10)
[2023-02-05] MEDS: OMEPRAZOLE 20 MG CAPSULE DR PO (09:07)
[2023-02-05] MEDS: DULOXETINE 30 MG CAPSULE DR 60 MG PO (09:07)
[2023-02-05] MEDS: MORPHINE 30 MG TABLET.ER PO (09:07)
[2023-02-05] MEDS: ROPINIROLE HCL 1 MG TABLET 2 MG PO (09:07)
[2023-02-05] MEDS: METOPROLOL TARTRATE 25 MG TABLET PO (09:07)
[2023-02-05] MEDS: SODIUM CHLORIDE 0.9 % (FLUSH) 10 ML SYRINGE 5 ML IVF (09:07)
[2023-02-05] MEDS: TORSEMIDE 20 MG TABLET 40 MG PO (09:07)
[2023-02-05 10:54] VITALS: BP 136/64; PULSE 86; RESP 18; TEMP 36.6
--- NOTE | 2023-02-05 10:56 | PC.NURSE ---
shift note: nurse to nurse given via phone to [facility]
--- NOTE | 2023-02-05 11:48 | PC.SOCIAL ---
Discharge planning- Received a phone call from Shanna in admissions at [facility]. [facility] will accept pt for admission today. Phone call to Pt's son, Douglas, to provide update. Informed pt's son that the stay would be private pay. Discussed transportation. Pt's son states that family is unavailable to transport and agrees to fees for non-emergency ambulance. Provided information to charge nurse. Non-emergency ambulance is set for 12:00 pm. Preadmission screening was completed. Confirmation #[id number]. Received a phone call from Shanna in admissions at [facility]. Shanna informs that she received a phone call from pt's daughter informing that pt does not have the funds to private pay for SNF stay. Shanna informs that if [facility] is able to complete the MA application with pt prior to discharge, then [facility] may be able to assess. Shanna will call back with clarifying information as she is going to speak with administration and pt's daughter. Provided update to charge nurse. Social work will follow up as necessary.
[2023-02-05 12:23] VITALS: BP 136/64; PULSE 86; RESP 18; TEMP 36.6
--- NOTE | 2023-02-05 12:40 | PC.NURSE ---
shift note: pt up 1/ 4 wheeled walker to bathroom & recliner. pt states she has 8/10 rt hip pain. Pt received tylenol per d.o and positioned with pillows in recliner. pt states rt hip pain better when rechecked 1 hr later. pt tolerated regular meal and pills crushed with applesauce. Pt has clr LS. pt used 1L pnc O2 during sleep due to sats decreased <88% during noc. bruising to posterior rt shoulder and rt ear. pt has abrasion with mepilex covering to lower rt ankle. Pt has scab to lt FA. IV dc'd intact Rt FA. Belongings reviewed and sent with pt at dc. Orders faxed and sent to [facility] at time of dc.
--- NOTE | 2023-02-07 16:30 | P.DS_ITS ---
DS: Providers Provider Time Seen by Provider: 08:00 Date Seen: 02/05/23 Date of admission: 02/03/23 16:59 Primary care physician: Bucky Nicholas MD Admitting Clinician: Nsa Rodriguez MD Consults: 02/03/23 18:37 Consult to Occupational Therapy [CONS] Routine Comment: Reason(s) for OT Consult:: Evaluate and Treat Any Restrictions?:: No Restrictions Consult to Physical Therapy [CONS] Routine Comment: Reason(s) for PT Consult:: Evaluate and Treat Any Restrictions?:: No Restrictions Consult to Living Skills Advisor [CONS] Routine Comment: Reason for Consult:: Discharge Planning Needs 02/03/23 19:07 Consult to Occupational Therapy [CONS] Routine Comment: Reason(s) for OT Consult:: Difficulty Managing ADLs Any Restrictions?:: No Restrictions Consult to Physical Therapy [CONS] Routine Comment: Reason(s) for PT Consult:: Evaluate Ambulation Any Restrictions?:: No Restrictions Consult to Living Skills Advisor [CONS] Routine Comment: Reason for Consult:: Discharge Planning Needs Attending Physician on discharge: Cristi Manriquez MD Date of Discharge: 02/05/23 DS: Diagnosis Discharge Diagnosis (1) Weakness: Status: Acute (2) Falls frequently: Status: Acute (3) Gait instability: Status: Acute (4) Pain: Status: Acute (5) Acquired pes planus of both feet: Status: Acute (6) Age-related physical debility: Status: Acute (7) Hearing difficulty of both ears: Status: Acute (8) Chronic hypoxemic respiratory failure: Status: Acute Problem details: Utilizes oxygen supplementation at home only periodically when she thinks she might need it. (9) Chronic venous insufficiency of lower extremity: Status: Acute Problem details: Signs: telangiectasias, reticular veins, small and large vericose veins, edema, hemosideran deposition hyperpigmentation. (10) ORIANA (obstructive sleep apnea): Status: Acute Problem details: - not on CPAP - continue prn supplemental oxygen overnight (11) Essential (primary) hypertension: Status: Acute Problem details: - continue home metoprolol (12) Non-insulin dependent diabetes mellitus: Status: Acute Problem details: - last A1c as an outpatient 6.0 (08/2023) (13) CKD (chronic kidney disease): Status: Acute Problem details: - GFR 63 /14 (14) Chronic pain: Status: Acute DS: Summary Hospital Course Hospital Course: Jacqueline Greene is a 87 year old female with past medical history of atrial fibrillation (on aspirin), chronic pain syndrome, CKD, HTN, GERD, HLD, T2Dm (non insulin dependent) presenting from home for evaluation of fall. The patient's hearing aids are not working; her communication is limited due to hearing issues. SHe lives alone. She has had multiple reported falls at home. She was brought to ED by EMS where CT head/cervical/thoracic/lumbar spine showed no acute findings. UA, CBC, BMP unremarkable. EKG showed Afib; not on anticoagulation. She was subsequently admitted for further evaluation and anticipated NH placement. Her condition remained stable throughout the hospitalization. Physical therapy and Occupational therapy assessed her and deemed her unsafe to return to her independent living setting. Patient is agreeable to long-term facility transfer for ongoing cares. Status at Discharge Functional status at discharge: uses cane/walker Time Spent with Patient Time attestation: Total time spent providing and/or coordinating discharge services: Time spent: Less than 30 minutes Exam Narrative: Exam Narrative: Gen: no acute distress; sleeping HEENT: NCAT EOMI mmm CV: RRR normal s1 s2 Lungs: CTAB Abd: Soft,nt, nd Neuro: sleeping; [place]; unable to transfer or ambulate without assist and use of ambulatory device. Discharge Plan Discharge Disposition: [facility] Discharge Location: [facility] Date of Admission: 02/03/23 16:59 Attending Provider on Discharge: Cristi Manriquez Primary Care Provider: Bucky Nicholas Condition: Stable Anticipated Discharge Date/Time: 02/05/23 12:05 Discharge Medications: New acetaminophen 325 mg Tablet 325 mg PO Q6H PRN30 Days Qty: 60 0RF torsemide 20 mg Tablet 40 mg PO BID@0800,1400 30 Days Qty: 60 0RF melatonin 3 mg Tablet 3 mg PO HS PRN30 Days Qty: 30 0RF aspirin [Children's Aspirin] 81 mg Tablet,Chewable 81 mg PO DAILY 30 Days Qty: 30 0RF Continued Lactobacillus acidophilus 0.5 mg (100 million cell) Tablet 2 tab PO TIDWM 30 Days Qty: 60 0RF potassium chloride 10 mEq capsule, extended release 20 meq PO DAILY Patient Comments: TAKE 2 CAPSULES BY MOUTH ONCE DAILY WITH A MEAL. alendronate 70 mg tablet 70 mg PO QWEEK Rx Instructions: ON TUESDAYS morphine 30 mg tablet extended release 30 mg PO BID Patient Comments: TAKE 1 TABLET (30 MG) BY MOUTH TWO TIMES DAILY. hydromorphone 2 mg tablet 1 - 2 mg PO BID PRN (Reason: pain) ropinirole 2 mg tablet 2 mg PO BID Patient Comments: TAKE 1 TABLET (2 MG) BY MOUTH IN THE MORNING AND 1 TABLET (2 MG) IN THE EVENING. omeprazole 20 mg capsule,delayed release(DR/EC) 20 mg PO BID Patient Comments: TAKE 1 CAPSULE BY MOUTH IN THE MORNING AND 1 CAPSULE IN THE EVENING. TAKE BEFORE MEALS. allopurinol 300 mg tablet 300 mg PO DAILY Patient Comments: TAKE 1 TABLET BY MOUTH ONCE DAILY. rosuvastatin 10 mg tablet 10 mg PO HS Patient Comments: TAKE 1 TABLET BY MOUTH EVERYDAY AT BEDTIME metoprolol tartrate 25 mg tablet 25 mg PO BID Patient Comments: TAKE 1 TABLET BY MOUTH IN THE MORNING AND 1 TABLET IN THE EVENING. duloxetine 60 mg capsule,delayed release(DR/EC) 60 mg PO DAILY Patient Comments: TAKE 1 CAPSULE BY MOUTH ONCE DAILY. pregabalin 25 mg capsule 25 mg PO BID Patient Comments: TAKE 1 CAPSULE (25 MG) BY MOUTH TWO TIMES DAILY. naloxone 4 mg/actuation spray,non-aerosol 4 mg INTRANASAL Q3M PRN (Reason: opioid overdose) Patient Comments: INHALE 1 SPRAY INTO NOSTRIL NEEDED FOR ACCIDENTAL OVERDOSE. ADDITIONAL DOS ES MAY BE GIVEN EVERY 2-3 MINUTES ALTERNATING NOTRILS. acetaminophen 1,000 mg PO BID ferrous sulfate [Feosol] 325 mg (65 mg iron) tablet 325 mg PO DAILY calcium carbonate 500 mg calcium (1,250 mg) tablet,chewable 500 mg PO BID Discontinued torsemide 20 mg tablet 40 mg PO BID Patient Comments: TAKE 2 TABLETS BY MOUTH TWICE A DAY Discharge Orders: Discharge Order (Routine); Ordered 02/05/23 Ordered By: Cristi Manriquez Activity Level: Activity as Tolerated and Use Walker Discharge Diet: Regular Follow Up Appointments: Bucky Nicholas MD [Primary Care Provider] - Admit to: SNF Discharge Potential: Fair Length of Stay: 30-90 days Can use facility standing orders?: Yes Code Status: DNR/DNI TEDs: Bilateral Knee Rehab Potential: Fair Therapy: Physical Therapy and Occupational Therapy Therapy Orders: Evaluate and Treat Oxygen: Yes Oxygen Delivery Method: Nasal Cannula Oxygen Flow Rate: 1 LPM Urinary Catheter: No Orders are good >30 days: Yes Signature: Cristi Manriquez
== END 2023-02-05 12:00 ==
LOC: ED 16:16 → MEDSURG 17:00
PROVIDERS: Admitting Provider Hospitalist; Emergency Provider Family Medicine; PCP Family Medicine; Visit Provider Hospitalist
DX: R54 Age-related physical debility (principal); M62.81 Muscle weakness (generalized); R79.82 Elevated C-reactive protein (CRP); J96.11 Chronic respiratory failure with hypoxia; R07.9 Chest pain, unspecified; I87.2 Venous insufficiency (chronic) (peripheral); R26.81 Unsteadiness on feet; M21.41 Flat foot [pes planus] (acquired), right foot; M21.42 Flat foot [pes planus] (acquired), left foot; G47.33 Obstructive sleep apnea (adult) (pediatric); I12.9 Hypertensive chronic kidney disease with stage 1 through stage 4 chronic kidney disease, or unspecified chronic kidney disease; E11.22 Type 2 diabetes mellitus with diabetic chronic kidney disease; N18.9 Chronic kidney disease, unspecified; G89.29 Other chronic pain; K21.9 Gastro-esophageal reflux disease without esophagitis; H91.93 Unspecified hearing loss, bilateral; I48.91 Unspecified atrial fibrillation; Z79.82 Long term (current) use of aspirin; M54.2 Cervicalgia; R63.1 Polydipsia; M40.209 Unspecified kyphosis, site unspecified; R42 Dizziness and giddiness; S80.02XA Contusion of left knee, initial encounter; R60.0 Localized edema; R05.9 Cough, unspecified; M54.9 Dorsalgia, unspecified; M25.50 Pain in unspecified joint; E87.5 Hyperkalemia; M24.662 Ankylosis, left knee; Z96.649 Presence of unspecified artificial hip joint; R29.6 Repeated falls; Z87.891 Personal history of nicotine dependence; Z87.448 Personal history of other diseases of urinary system; Z98.890 Other specified postprocedural states; Z96.659 Presence of unspecified artificial knee joint; Z66 Do not resuscitate
CPT/HCPCS: 36415; 70450; 72125; 72128; 72131; 73562; 80053; 81001; 82550; 84484; 85025; 86140; 93005; 96361; 96374; 96375; 97112; 97116; 97162; 97165; 97530; 97535; 99285; G0378; A9270; J2270; J2405; J7030

== ENCOUNTER 2023-02-05 11:57 | Outpatient (CLI) | payer MEDICARE, BC, SELFPAY | END 2023-02-05 11:58 | disposition home or self-care (01) | LOC: AMB 02-06 01:40 | PROVIDERS: Visit Provider Family Medicine | DX: Z99.3 Dependence on wheelchair (principal) | CPT/HCPCS: A0425; A0428 ==

== ENCOUNTER 2023-04-18 17:18 | Emergency (ER) | payer MEDICARE, BC, MEDICAID, SELFPAY ==
[2023-04-18 17:52] VITALS: BP 126/70; PULSE 85; RESP 17; TEMP 35.9; O2SAT 94; BMI 25.0
--- NOTE | 2023-04-18 19:29 | ED.GENADULT ---
HPI - General Adult General Chief complaint: Ear/Nose/Throat Problem Stated complaint: R ear pain Time Seen by Provider: 04/18/23 19:28 History of Present Illness HPI narrative: Patient reports some pain and sensation of fluid for some time. Was seen in UC and given oral antibiotics ( states she was prescribed liquid but this was too expensive, so it was switched ) but this did not help. She is unable to use her hearing air. 87-year-old woman presenting to the emergency department accompanied by her son with complaint of drainage from right ear and discomfort. Wears hearing aids. Sounds like 8 days ago in urgent care was given an oral prescription for a right ear infection. Does not recall having issues before and she has not been struggling with nasopharyngeal congestion. No fever. No trauma. No difficulty swallowing or chewing. She has not been swimming. Related Data Home Medications Medication Instructions Recorded Confirmed acetaminophen 1,000 mg PO BID 09/01/22 04/10/23 alendronate 70 mg tablet 70 mg PO QWEEK 09/01/22 04/10/23 allopurinol 300 mg tablet 300 mg PO DAILY 09/01/22 04/10/23 calcium carbonate 500 mg calcium 500 mg PO BID 09/01/22 04/10/23 (1,250 mg) chewable tablet duloxetine 60 mg capsule,delayed 60 mg PO DAILY 09/01/22 04/10/23 release ferrous sulfate 325 mg (65 mg 325 mg PO DAILY 09/01/22 04/10/23 iron) tablet (Feosol) hydromorphone 2 mg tablet 1 - 2 mg PO BID PRN pain 09/01/22 04/10/23 metoprolol tartrate 25 mg tablet 25 mg PO BID 09/01/22 04/10/23 morphine 30 mg tablet,extended 30 mg PO BID chronic pain 09/01/22 04/10/23 release naloxone 4 mg/actuation nasal spray 4 mg intranasal Q3M PRN opioid 09/01/22 04/10/23 overdose omeprazole 20 mg capsule,delayed 20 mg PO BID 09/01/22 04/10/23 release potassium chloride 10 mEq 20 meq PO DAILY 09/01/22 04/10/23 capsule,extended release pregabalin 25 mg capsule 25 mg PO BID 09/01/22 04/10/23 ropinirole 2 mg tablet 2 mg PO BID 09/01/22 04/10/23 rosuvastatin 10 mg tablet 10 mg PO HS 09/01/22 04/10/23 Previous Rx's Medication Instructions Recorded Lactobacillus acidophilus 0.5 mg 2 tab PO TIDWM 30 days #60 tabs 10/17/22 (100 million cell) tablet acetaminophen 325 mg tablet 325 mg PO Q6H PRN 30 days #60 tabs 02/05/23 aspirin 81 mg chewable tablet 81 mg PO DAILY 30 days #30 tabs 02/05/23 (Children's Aspirin) melatonin 3 mg tablet 3 mg PO HS PRN 30 days #30 tabs 02/05/23 torsemide 20 mg tablet 40 mg (2 x 20 mg) PO BID@0800,1400 02/05/23 30 days #60 tabs amoxicillin 875 mg-potassium 1 tab PO BID #20 tabs 04/10/23 clavulanate 125 mg tablet Allergies Allergy/AdvReac Type Severity Reaction Status Date / Time atorvastatin Allergy Unknown Verified 04/10/23 16:08 fentanyl Allergy Unknown Verified 04/10/23 16:08 gabapentin Allergy Unknown Verified 04/10/23 16:08 metoclopramide [From Reglan] Allergy Unknown Verified 04/10/23 16:08 Review of Systems Status of ROS: Reports: 6 or more systems reviewed and unremarkable except as noted in History and below [facility] Medical History Otitis externa ?H60.90 - Unspecified otitis externa, unspecified ear (ICD-10) Frequent falls ?R29.6 - Repeated falls (ICD-10) Acquired pes planus of both feet ?M21.41 - Flat foot [pes planus] (acquired), right foot (ICD-10) ?M21.42 - Flat foot [pes planus] (acquired), left foot (ICD-10) Age-related physical debility ?R54 - Age-related physical debility (ICD-10) Gait instability ?R26.81 - Unsteadiness on feet (ICD-10) Hearing difficulty of both ears ?H91.93 - Unspecified hearing loss, bilateral (ICD-10) Chronic hypoxemic respiratory failure ?J96.11 - Chronic respiratory failure with hypoxia (ICD-10) Chronic venous insufficiency of lower extremity ?I87.2 - Venous insufficiency (chronic) (peripheral) (ICD-10) Atrial fibrillation ?I48.91 - Unspecified atrial fibrillation (ICD-10) Hyperlipidemia ?E78.5 - Hyperlipidemia, unspecified (ICD-10) Spinal stenosis ?M48.00 - Spinal stenosis, site unspecified (ICD-10) GERD (gastroesophageal reflux disease) ?K21.9 - Gastro-esophageal reflux disease without esophagitis (ICD-10) Essential (primary) hypertension ?I10 - Essential (primary) hypertension (ICD-10) Non-insulin dependent diabetes mellitus ORIANA (obstructive sleep apnea) ?G47.33 - Obstructive sleep apnea (adult) (pediatric) (ICD-10) CKD (chronic kidney disease) ?N18.9 - Chronic kidney disease, unspecified (ICD-10) Chronic pain ?G89.29 - Other chronic pain (ICD-10) Surgical History History of hip replacement ?Z96.649 - Presence of unspecified artificial hip joint (ICD-10) Hx of right hemicolectomy ?Z90.49 - Acquired absence of other specified parts of digestive tract (ICD-10) H/O umbilical hernia repair ?Z98.890 - Other specified postprocedural states (ICD-10) ?Z87.19 - Personal history of other diseases of the digestive system (ICD-10) S/P knee replacement ?Z96.659 - Presence of unspecified artificial knee joint (ICD-10) Social History Narrative: Lives with in [place], 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 Former smoker, quit remotely. Rare alcohol use. Daily narcotic use secondary to chronic pain. Son Douglas would be medical decision maker if needed. Requests full code status, does not desire long-term intubation. What is your current living situation?: I have a place to live at present, but am concerned about future Problems where you live: unable to answer Problems where you live details: unknown In the past 12 months, utilities in danger of being shut off: no In the past 12 mos, have been you worried that your food would run out before you had money to buy more?: unable to answer In the past 12 mos, the food you bought just didn't last and you didn't have money to buy more?: unable to answer Highest level of school completed/degree received: Associate degree: occupational, technical, vocational program Smoking Status: Former smoker Do you use any of these nicotine containing products: None Second hand tobacco smoke exposure: No How often do you have a drink containing alcohol: monthly or less How many standard drinks containing alcohol do you have on a typical day: 1 or 2 AUDIT-C Alcohol total score: 1 Non-prescribed substance use: denies use Caffeine: Yes How often does anyone, including family, friends and others, physically hurt you: never How often does anyone, including family, friends and others, insult or talk down to you: never How often does anyone, including family, friends and others, threaten you with harm: never How often does anyone, including family, friends and others, scream or curse at you: never service: No Exam Narrative: Exam Narrative: Pleasant. NAD. Hard of hearing. Does have a hearing aid in the left ear. Clearly years better from here. Skin is warm and dry. No swelling or erythema evident in the periauricular areas bilaterally. Neck is supple. There is no lymphadenopathy about the neck. Tenderness to movement of the right pinna. Less so the tragus. Manipulation with the ear speculum does cause discomfort however. I am just able to visualize the right TM which appears pearly, normal and without fluid. There is though purulence throughout the ear canal. I do not see any foreign body. She did not have her hearing aid in the right side. The left ear canal looks unremarkable following removal of the hearing aid. TM also pearly and normal. Const: Vital Signs, click to edit/add: Vital Signs - 24 hr 04/18/23 17:52 Temperature 96.7 F L Pulse Rate [Pulse Oximeter] 85 Respiratory Rate 17 Blood Pressure [Ri ght Upper Arm] 126/70 Pulse Oximetry 94 Oxygen Delivery Me thod Room Air Documenting provider has reviewed patient's vital signs: yes Course Vital Signs Vital signs: Initial Vital Signs Temperature 96.7 F L 04/18/23 17:52 Temperature Source Temporal Artery Scan 04/18/23 17:52 Pulse Rate 85 04/18/23 17:52 Respiratory Rate 17 04/18/23 17:52 Blood Pressure 126/70 04/18/23 17:52 Blood Pressure Mean 88 04/18/23 17:52 Pulse Oximetry 94 04/18/23 17:52 Oxygen Delivery Method Room Air 04/18/23 17:52 Vital Signs Temperature 96.7 F L 04/18/23 17:52 Pulse Rate 85 04/18/23 17:52 Respiratory Rate 17 04/18/23 17:52 Blood Pressure 126/70 04/18/23 17:52 Pulse Oximetry 94 04/18/23 17:52 Oxygen Delivery Method Room Air 04/18/23 17:52 Temperature 96.7 F L 04/18/23 17:52 Pulse Rate 85 04/18/23 17:52 Respiratory Rate 17 04/18/23 17:52 Blood Pressure 126/70 04/18/23 17:52 Pulse Oximetry 94 04/18/23 17:52 Oxygen Delivery Method Room Air 04/18/23 17:52 Medical Decision Making MDM Narrative Medical decision making narrative: Clearly appears to have an otitis externa though with less inflammation or edema than I might typically expect. Also less tenderness. She does however wear hearing aids and this might result in less sensitivity. Hearing aids may also be somewhat contributory. Does not have an otitis media that I can see. See patient discharge plan Medical Records Medical records reviewed: Yes I reviewed the patient's medical records Discharge Plan Discharge Clinical Impression: Otitis externa Patient Disposition: Home w/ Parent or Adult Condition: Stable Additional Instructions: Watch for increasing redness around the outside of the ear, marked increase in pain, fever. Be seen in about a week once course of treatment is complete to have somebody reassess the ear before replacing your hearing aid. Cortisporin otic drops from [facility] Activity Level: No Restrictions Discharge Diet: Regular Prescriptions: No Action amoxicillin-pot clavulanate 875-125 mg tablet 1 tab PO BID Qty: 20 0RF Lactobacillus acidophilus 0.5 mg (100 million cell) Tablet 2 tab PO TIDWM 30 Days Qty: 60 0RF acetaminophen 325 mg Tablet 325 mg PO Q6H PRN30 Days Qty: 60 0RF torsemide 20 mg Tablet 40 mg PO BID@0800,1400 30 Days Qty: 60 0RF melatonin 3 mg Tablet 3 mg PO HS PRN30 Days Qty: 30 0RF aspirin [Children's Aspirin] 81 mg Tablet,Chewable 81 mg PO DAILY 30 Days Qty: 30 0RF potassium chloride 10 mEq capsule, extended release 20 meq PO DAILY Patient Comments: TAKE 2 CAPSULES BY MOUTH ONCE DAILY WITH A MEAL. alendronate 70 mg tablet 70 mg PO QWEEK Rx Instructions: ON TUESDAYS morphine 30 mg tablet extended release 30 mg PO BID Patient Comments: TAKE 1 TABLET (30 MG) BY MOUTH TWO TIMES DAILY. hydromorphone 2 mg tablet 1 - 2 mg PO BID PRN (Reason: pain) ropinirole 2 mg tablet 2 mg PO BID Patient Comments: TAKE 1 TABLET (2 MG) BY MOUTH IN THE MORNING AND 1 TABLET (2 MG) IN THE EVENING. omeprazole 20 mg capsule,delayed release(DR/EC) 20 mg PO BID Patient Comments: TAKE 1 CAPSULE BY MOUTH IN THE MORNING AND 1 CAPSULE IN THE EVENING. TAKE BEFORE MEALS. allopurinol 300 mg tablet 300 mg PO DAILY Patient Comments: TAKE 1 TABLET BY MOUTH ONCE DAILY. rosuvastatin 10 mg tablet 10 mg PO HS Patient Comments: TAKE 1 TABLET BY MOUTH EVERYDAY AT BEDTIME metoprolol tartrate 25 mg tablet 25 mg PO BID Patient Comments: TAKE 1 TABLET BY MOUTH IN THE MORNING AND 1 TABLET IN THE EVENING. duloxetine 60 mg capsule,delayed release(DR/EC) 60 mg PO DAILY Patient Comments: TAKE 1 CAPSULE BY MOUTH ONCE DAILY. pregabalin 25 mg capsule 25 mg PO BID Patient Comments: TAKE 1 CAPSULE (25 MG) BY MOUTH TWO TIMES DAILY. naloxone 4 mg/actuation spray,non-aerosol 4 mg INTRANASAL Q3M PRN (Reason: opioid overdose) Patient Comments: INHALE 1 SPRAY INTO NOSTRIL NEEDED FOR ACCIDENTAL OVERDOSE. ADDITIONAL DOSES MAY BE GIVEN EVERY 2-3 MINUTES ALTERNATING NOTRILS. acetaminophen 1,000 mg PO BID ferrous sulfate [Feosol] 325 mg (65 mg iron) tablet 325 mg PO DAILY calcium carbonate 500 mg calcium (1,250 mg) tablet,chewable 500 mg PO BID Follow Up/Referrals: Bucky Nicholas MD [Primary Care Provider] - Stand Alone Forms: MST Info Instructions
== END 2023-04-18 20:44 | disposition home or self-care (01) ==
PROVIDERS: Emergency Provider Family Medicine; PCP Family Medicine
DX: H60.91 Unspecified otitis externa, right ear (principal)
CPT/HCPCS: 99282; 99283; 99284

== ENCOUNTER 2024-09-20 16:48 | Outpatient (REF) | payer MEDICARE, BC, SELFPAY | END 2024-09-20 16:49 | disposition home or self-care (01) | LOC: NPINS 16:48 | PROVIDERS: PCP Family Medicine; Referring Provider Family Medicine; Visit Provider Family Medicine | DX: R53.82 Chronic fatigue, unspecified (principal) | CPT/HCPCS: 87631 ==

== ENCOUNTER 2024-09-21 12:13 | Outpatient (REF) | payer MEDICARE, BC, SELFPAY ==
[2024-09-21 14:40] LABS: PCR FLU A POSITIVE PCR FLU A (Negative); PCR FLU B Negative PCR FLU B (Negative); PCR RSV Negative PCR RSV (Negative); SARS PCR* Negative SARS-CoV-2 (Negative)
== END 2024-09-21 12:14 | disposition home or self-care (01) ==
LOC: NPINS 12:13
PROVIDERS: PCP Family Medicine; Visit Provider Nurse Practitioner Gerontology
DX: R09.81 Nasal congestion (principal)
CPT/HCPCS: 87631